=== PATIENT | male | born 1955 | race Two or more races ===

== ENCOUNTER 2016-05-27 09:55 | Observation (INO) | payer MEDICARE ==
--- NOTE | 2016-05-27 10:19 | PDOC ---
History of Present Illness - General History Source: Patient Exam Limitations: No Limitations <Marlon Jay - Last Filed: 05/27/16 12:49> - General History Source: Patient, Old Records Exam Limitations: No Limitations <Radha Cutler - Last Filed: 05/27/16 17:54> - General Chief Complaint: Chest Pain Stated Complaint: HIGH BP/ LT SIDE NUMBNESS Time Seen by Provider: 05/27/16 10:06 - History of Present Illness Initial Comments: 05/27/16 14:34 The patient is a 60 year old male, with a significant past medical history of anemia, hypertension, COPD, PE (2010) on Coumadin, CHF, gastritis, bowel obstruction and nephrolithiasis, who presents to the emergency department with intermittent chest pain for the past week. The patient reports that his chest pain is worse with exertion and feels similar but more severe than previous. The patient additionally reports a mild gradual onset of headache on the left side and endorses formication, stating that he feels a tingling sensation as if something is walking/crawling on his skin particularly on the left side of his face and shoulder. The patient denies diaphoresis, palpitations or shortness of breath. The patient denies fever, chills, nausea, vomiting, diarrhea or melena/ bpr. Pt states he is compliant with his coumadin. The patients primary language is Bahraini and history was taken in Bahraini. There is no associated weakness, numbness, vision changes, neck pain or back pain. Allergies: Amoxicillin Past Surgical History: Small Bowel Obstruction. Social History: Former smoker (quit 3 years ago). Denies alcohol or drug use. PCP: Dr. Lance Florentino Cnc Lathe Programmer: Dr. Harris (Radha Cutler) Past History - Past Medical History Anemia: Yes Cardiac Disorders: Yes COPD: Yes CHF: Yes DVT: Yes (blood clot) GI Disorders: Yes Disorders: Yes (Kidney Stones) HTN: Yes Hypercholesterolemia: Yes Kidney Stones: Yes Suicide Attempt (Hx): No - Surgical History Abdominal Surgery: Yes (SBO) Neurologic Surgery: No - Immunization History Immunization Up to Date: Yes - Psycho/Social/Smoking Cessation Hx Anxiety: No Suicidal Ideation: No Smoking Status: Yes Smoking History: Current some day smoker Have you smoked in the past 12 months: No Number of Cigarettes Smoked Daily: 2 If you are a former smoker, when did you quit?: 3 years Information on smoking cessation initiated: No 'Breaking Loose' booklet given: 12/29/15 Hx Alcohol Use: No Drug/Substance Use Hx: No Substance Use Type: None Hx Substance Use Treatment: No <PierreMarlon - Last Filed: 05/27/16 12:49> <Radha Cutler - Last Filed: 05/27/16 17:54> - Past Medical History Allergies/Adverse Reactions: Allergies Allergy/AdvReac Type Severity Reaction Status Date / Time amoxicillin [Amoxicillin] Allergy Verified 12/28/15 12:41 Home Medications: Ambulatory Orders Alprazolam 0.5 mg PO TID PRN 03/15/15 Losartan Potassium 25 mg PO DAILY 03/15/15 Warfarin Sodium [Coumadin] 4 mg PO HS 03/15/15 Loratadine/Pseudoephedrine Sul [Claritin-D 24 Hour Tablet] 1 tab PO DAILY #30 tab.sr.24h 03/16/15 Carisoprodol [Soma] 350 mg PO BID 12/28/15 Carvedilol [Coreg] 3.125 mg PO BID 12/28/15 Omeprazole 40 mg PO DAILY 12/28/15 Risperidone 0.5 mg PO HS 12/28/15 Review of Systems <PierreMarlon dan - Last Filed: 05/27/16 12:49> - Review of Systems Able to Perform ROS?: Yes <Radha Cutler - Last Filed: 05/27/16 17:54> - Review of Systems Comments:: 05/27/16 14:34 CONSTITUTIONAL: No reported: Fever, Chills, Diaphoresis, Generalized Weakness, Malaise, Loss of Appetite HEENT: No reported: Rhinorrhea, Nasal Congestion, Throat Pain, Throat Swelling, Difficulty Swallowing, Mouth Swelling, Ear Pain, Eye Pain, Visual Changes CARDIOVASCULAR:: +Chest Pain Reported No reported: Syncope, Palpitations, Irregular Heart Rate, Lightheadedness, Peripheral Edema RESPIRATORY: No reported: Cough, Shortness of Breath, SOB with Exertion, Orthopnea, Wheezing , Stridor, Hemoptysis GASTROINTESTINAL: No reported: Abdominal pain, Abdominal Distension, Nausea, Vomiting, Diarrhea, Constipation, Melena, Hematochezia GENITOURINARY: No reported: Dysuria, Frequency, Urgency, Hesitancy, Flank Pain, Genital Pain MUSCULOSKELETAL: No reported: Myalgia, Arthralgia, Joint Swelling, Back pain, Neck Pain SKIN: No reported: Rash, Itching, Pallor HEMATOLOGIC/IMMUNOLOGIC: No reported: Easy Bleeding, Easy Bruising, Lymphadenopathy, Frequent infections ENDOCRINE: No reported: Unexplained Weight Gain, Unexplained Weight Loss, Heat Intolerance , Cold Intolerance NEUROLOGIC: Reported: +Headache, Tingling Sensation No reported: Focal Weakness, Paresthesias, Vertigo, Lightheadedness, Unsteady Gait, Seizure, Mental Status Changes, Incontinence PSYCHIATRIC: No reported: Anxiety, Depression (Radha Cutler) *Physical Exam <Marlon Jay - Last Filed: 05/27/16 12:49> <Radha Cutler - Last Filed: 05/27/16 17:54> - Vital Signs Last Vital Signs Temp Pulse Resp BP Pulse Ox 98.2 F 60 26 H 105/49 98 05/27/16 12:38 05/27/16 12:38 05/27/16 09:58 05/27/16 12:38 05/27/16 12:38 - Physical Exam Comments: 05/27/16 14:35 GENERAL: The patient is awake, alert, and fully oriented, nontoxic - in no acute distress. HEAD: Normocephalic, atraumatic. EYES: Extraocular movements intact, sclera anicteric, conjunctiva clear. ENT: Normal voice, moist mucous membranes. NECK: Normal range of motion, supple. LUNGS: Breath sounds equal, clear to auscultation bilaterally. No wheezes, no rhonchi, no rales. HEART: Regular rate and rhythm, without murmur, rub or gallop. ABDOMEN: Soft, nontender, normoactive bowel sounds. No guarding, no rebound. No CVA tenderness EXTREMITIES: Normal range of motion, no edema. No clubbing or cyanosis. No cords , erythema, or tenderness. pulses i lower extremities symmetric PSYCH: Normal mood, normal affect. SKIN: Warm, dry, normal turgor. NEURO: Mental status: The patient is oriented x3. Cranial nerves: Cranial nerves II through XII are intact Motor: The upper extremities are 5 over 5 in all muscle groups. The lower extremities are 5 over 5 in all muscle groups. Negative pronator drift Sensation: Sensation is intact to light touch throughout. Cerebellar: Yawriu-dgodyi-ryyz is normal in both upper extremities. Gait: Normal. (Radha Cutler) Heart Score/ECG Review <Marlon Jay - Last Filed: 05/27/16 12:49> <Radha Cutler - Last Filed: 05/27/16 17:54> - ECG Impressions Comment:: 05/27/16 10:26 Twelve-lead EKG was performed and reviewed by me. There is normal sinus rhythm with a normal rate. rate of 65 The axis is normal. The intervals are normal. There is normal R wave progression There are no ST or T wave abnormalities. Impression: Normal twelve-lead EKG (Marlon Jay) ED Treatment Course - LABORATORY CBC & Chemistry Diagram: 05/27/16 10:07 05/27/16 10:07 <Marlon Jay - Last Filed: 05/27/16 12:49> - LABORATORY CBC & Chemistry Diagram: 05/27/16 10:07 05/27/16 10:07 <Radha Cutler - Last Filed: 05/27/16 17:54> - ADDITIONAL ORDERS Additional order review: Laboratory Results 05/27/16 05/27/16 05/27/16 10:07 10:07 10:07 INR 2.05 H Sodium 137 Potassium 4.0 Chloride 101 Carbon Dioxide 28 Anion Gap 8 BUN 10 D Creatinine 1.0 Creat Clearance w eGFR > 60 Random Glucose 112 H D Calcium 9.3 Total Bilirubin 0.5 AST 28 D ALT 31 D Alkaline Phosphatase 116 Creatine Kinase 44 Troponin I < 0.02 B-Natriuretic Peptide 75.76 Total Protein 7.5 Albumin 3.9 Blood Type O POSITIVE Antibody Screen Negative 05/27/16 10:07 RBC 6.08 H MCV 85.1 MCHC 33.5 RDW 15.1 MPV 8.3 Neutrophils % 58.0 Lymphocytes % 26.0 Monocytes % 6.0 Eosinophils % 2.0 Basophils % 3.0 H D - Medications Given in the ED: ED Medications Discontinued Medications Generic Name Dose Route Start Last Admin Trade Name Freq PRN Reason Stop Dose Admin Sodium Chloride 1,000 mls @ 1,000 mls/hr 05/27/16 11:06 05/27/16 11:25 Normal Saline - IV 05/27/16 12:05 1,000 mls/hr .Q1H ONE Administration Nitroglycerin 0.4 mg 05/27/16 12:25 05/27/16 12:35 Nitrostat - SL 05/27/16 12:26 0.4 mg ONCE ONE Administration Medical Decision Making <PierreMarlon - Last Filed: 05/27/16 12:49> <Radha Cutler - Last Filed: 05/27/16 17:54> - Medical Decision Making 05/27/16 10:21 60y M hx of copd, chf, PE on coumadin, htn, hl, presents with complaint of headache and chest pain. Pt states he has had chest pain for approx 1 week, intermittently, worsens with exertion, and headache that is associated with sensation of tingling like something is walking on his skin onhis face and shoulder since last night without associated weakness. Differential for the pts symptoms includes possible ACS, consider possible PE - however pt is on coumadin, so if pt is therapeutic, will defer further workup as pts sypmtoms are fairly vague. cnsider cva for pts tingling - will obtain CT head however the pts exam is unremarkable with intact neuro/cranial exam. vitals normal will obtain ct head, troponin, inr/pt, cxr, ekg will reasssess, anticipate observation A portion of this note was documented by scribe services under my direction. I have reviewed the details of the note, within reason, and agree with the documentation with the following case summary and management plan written by me 05/27/16 12:25 labs reviewed unremarkable trop negative ct head negative cxr negative pt now complaining of pain radiating to his left back - ?dissection? will r/o with CTA 05/27/16 12:[address] gomez agreed with management will place in observation telemetry status will notify dr. david ferrell for tele Case discussed in detail with admitting physician including history, physical exam and ancillary studies. Admitting physician has assumed care for the patient, will follow all pending diagnostics and will complete the evaluation and treatment. (Marlon Jay) 05/27/16 12:31 EXAM: RAD/CHEST X-RAY PORTABLE Reviewed By: Dr. Vince Rossi IMPRESSION: No active disease in the chest. EXAM: CT/HEAD CT WITHOUT CONTRAST Reviewed By: Dr. Luis Fernando Burch IMPRESSION: No evidence of acute intracranial hemorrhage, edema, midline shift, mass effect, or skull fracture. No CT evidence of acute territorial infarction. EXAM: CT/CHEST CTA; CT/ABDOMEN & PELVIS WITH CONTRAST Reviewed By: Dr. Miguel Garcia IMPRESSION: 1. There is no evidence of thoracic or abdominal aortic aneurysm or dissection. 2. Mild chronic lung disease and stable right upper lobe nodule. No acute pathology within in the chest. 3. No acute pathology within the abdomen or pelvis. Call placed to Dr. Gomez at 12:25, 12:45. Referred to answering service, awaiting callback. Dr. Gomez returned call at 12:46, case discussed. Call placed to Dr. Harris at 13:35, 14:00. Referred to answering service, awaiting callback. Dr. Guillaume returned call at 14:08, case discussed. (Radha Cutler) *DC/Admit/Observation/Transfer - Discharge Dispostion Admit: Yes <Marlon Jay - Last Filed: 05/27/16 12:49> <Radha Cutler - Last Filed: 05/27/16 17:54> Diagnosis at time of Disposition: Chest pain Qualifiers: Chest pain type: unspecified Qualified Code(s): R07.9 - Chest pain, unspecified - Discharge Dispostion Condition at time of disposition: Guarded - Attestations Scribe Attestion: 05/27/16 10:28 Documentation prepared by aRdha Cutler, acting as medical insurance biller for Marlon Jay MD. (Radha Cutler)
[2016-05-27 10:42] LABS: MCH 28.5 pg (25.7-33.7); MCHC 33.5 g/dl (32.0-35.9); MEAN CELL VOLUME 85.1 fl (80-96); MEAN PLT VOLUME 8.3 fl (7.5-11.1); PLATELET COUNT 387 K/MM3 (134-434); RDW 15.1 % (11.9-15.9); WHITE BLOOD COUNT 10.8 K/mm3 (4.0-10.0)
[2016-05-27 10:46] LABS: ALBUMIN 3.9 g/dl (3.4-5.0); ANION GAP 8 (8-16); CALCIUM 9.3 mg/dL (8.5-10.1); CO2 28 mmol/L (21-32); GLUCOSE,RANDOM 112 mg/dL (74-106); SGOT/AST 28 U/L (15-37); SGPT/ALT 31 U/L (12-78)
[2016-05-27 10:50] LABS: ALK PHOS 116 U/L (45-117); BILIRUBIN,TOTAL 0.5 mg/dL (0.2-1.0); TOT PROT 7.5 g/dl (6.4-8.2); TROPONIN I < 0.02 ng/ml (0.00-0.05)
[2016-05-27 10:51] LABS: INR 2.05 (0.82-1.09); PROTHROMBIN TIME (PATIENT) 22.9 SEC (9.98-11.88)
[2016-05-27] MEDS ORDERED: SODIUM CHLORIDE 1,000 ML IV ONE (11:06)
[2016-05-27] MEDS ORDERED: NITROGLYCERIN SUBLINGUAL 1/150 0.4 MG TAB SL ONE (12:25)
[2016-05-27 19:22] LABS: TROPONIN I < 0.02 ng/ml (0.00-0.05)
[2016-05-27] MEDS ORDERED: ACETAMINOPHEN 325 MG TABLET (FP) ONE (20:53)
[2016-05-27] MEDS ORDERED: ACETAMINOPHEN 325 MG TABLET (FP) PO PRN (20:59)
[2016-05-27] MEDS ORDERED: CYCLOBENZAPRINE HCL 10 MG TABLET (FP) PO PRN (23:50)
[2016-05-27] MEDS ORDERED: ALPRAZolam 0.25 MG TABLET PO PRN (23:50)
[2016-05-27] MEDS ORDERED: METOCLOPRAMIDE HCL 10 MG TABLET (FP) PO PRN (23:50)
[2016-05-28] MEDS: MAG HYDROX/AL HYDROX/SIMETH 30 ML UNIT-DOSE CUP PO PRN ×2 (00:10→09:10)
[2016-05-28] MEDS ORDERED: WARFARIN NA 2 MG TABLET (UD) PO ONE (00:15)
[2016-05-28 03:54] VITALS: BMI 30.6
[2016-05-28 06:57] LABS: BASOPHIL 2.5 % (0-2.0); EOSINOPHIL 5.1 % (0-4.5); MCH 28.6 pg (25.7-33.7); MCHC 33.6 g/dl (32.0-35.9); MEAN CELL VOLUME 85.1 fl (80-96); MEAN PLT VOLUME 8.4 fl (7.5-11.1); NEUTROPHILS 48.1 % (42.8-82.8); PLATELET COUNT 352 K/MM3 (134-434); WHITE BLOOD COUNT 8.2 K/mm3 (4.0-10.0)
[2016-05-28 07:06] LABS: ALBUMIN 3.4 g/dl (3.4-5.0); ANION GAP 9 (8-16); CALCIUM 8.6 mg/dL (8.5-10.1); CO2 30 mmol/L (21-32); GLUCOSE,RANDOM 80 mg/dL (74-106)
[2016-05-28 07:12] LABS: ALK PHOS 99 U/L (45-117); BILIRUBIN,TOTAL 0.4 mg/dL (0.2-1.0); CREATININE 1.2 mg/dL (0.7-1.3); SGOT/AST 22 U/L (15-37); SGPT/ALT 27 U/L (12-78); TOT PROT 6.5 g/dl (6.4-8.2); TROPONIN I < 0.02 ng/ml (0.00-0.05)
[2016-05-28 07:15] LABS: INR 1.92 (0.82-1.09); PROTHROMBIN TIME (PATIENT) 21.4 SEC (9.98-11.88)
[2016-05-28] MEDS ORDERED: PT OWN MED DRAWER 7, Y5N ONE (09:05)
--- NOTE | 2016-05-28 09:28 | PN ---
Progress Note (short form) - Note Progress Note: Consult Dictated Atypical chest pain, non-cardiac Remote h/o pulmonary embolism 2010 on coumadin REC: ECG without acute changes and serial enzymes neg Atypical symptoms, normal persantine MIBI 12/2015 Can repeat echo, rule out pericardial effusion (unlikely) No further cardiac w/u planned at this time. INR goal 2-3
[2016-05-28] MEDS ORDERED: CARVEDILOL 3.125 MG TABLET (FP) PO SCH (10:00)
[2016-05-28] MEDS ORDERED: PANTOPRAZOLE 40 MG TABLET (FP) PO SCH (10:00)
[2016-05-28] MEDS ORDERED: PATIENT'S OWN MEDICATION (NON-FORMULARY) (Carisoprodol [Soma] 350 MG) PO SCH (10:00)
[2016-05-28] MEDS ORDERED: LOSARTAN POTASSIUM 25 MG TABLET PO SCH (10:00)
--- NOTE | 2016-05-28 11:57 | HP ---
Admitting History and Physical - Past Medical History Cardiovascular: Yes: CAD (mild non-obstructive disease), CHF, HTN, Hyperlipdemia Pulmonary: Yes: Asthma, COPD, Pulmonary Embolus Gastrointestinal: Yes: Other (small bowel obstruction) Heme/Onc: Yes: Hypercoaguable State Infectious Disease: Yes: Other (left flank abscess) - Smoking History Smoking history: Current some day smoker Have you smoked in the past 12 months: Yes Aproximately how many cigarettes per day: 1 If you are a former smoker, when did you quit?: 3 years - Alcohol/Substance Use Hx Alcohol Use: No - Social History ADL: Independent History of Recent Travel: No Home Medications - Allergies Allergies/Adverse Reactions: Allergies Allergy/AdvReac Type Severity Reaction Status Date / Time amoxicillin [Amoxicillin] Allergy Verified 12/28/15 12:41 - Home Medications Home Medications: Ambulatory Orders Alprazolam 0.5 mg PO TID PRN 03/15/15 Losartan Potassium 25 mg PO DAILY 03/15/15 Warfarin Sodium [Coumadin] 4 mg PO HS 03/15/15 Carisoprodol [Soma] 350 mg PO BID 12/28/15 Carvedilol [Coreg] 3.125 mg PO BID 12/28/15 Omeprazole 40 mg PO DAILY 12/28/15 Cyclobenzaprine HCl [Flexeril 10 mg] 5 mg PO BID PRN 05/27/16 Loratadine/Pseudoephedrine Sul [Claritin-D 24 Hour Tablet] 1 tab PO DAILY PRN Mag Hydrox/Al Hydrox/Simeth [Mylanta Oral Suspension -] 30 ml PO Q6H PRN Metoclopramide HCl [Reglan] 5 mg PO TID PRN 05/27/16 Physical Examination Vital Signs: Vital Signs Temperature 97.4 F L 05/28/16 09:12 Pulse Rate 89 05/28/16 09:12 Respiratory Rate 20 05/28/16 09:12 Blood Pressure 122/82 05/28/16 09:12 O2 Sat by Pulse Oximetry (%) 96 05/27/16 23:59 Labs: CBC, BMP 05/28/16 05:35 05/28/16 05:35 Problem List - Problems (1) Chest pain Code(s): R07.9 - CHEST PAIN, UNSPECIFIED Qualifiers: Chest pain type: unspecified Qualified Code(s): R07.9 - Chest pain, unspecified (2) HLD (hyperlipidemia) Code(s): E78.5 - HYPERLIPIDEMIA, UNSPECIFIED (3) HTN (hypertension) Code(s): I10 - ESSENTIAL (PRIMARY) HYPERTENSION (4) History of pulmonary embolism Code(s): Z86.711 - PERSONAL HISTORY OF PULMONARY EMBOLISM
--- NOTE | 2016-05-28 12:10 | CONS ---
DATE OF CONSULTATION: 05/28/2016 REQUESTING PHYSICIAN: Joyce Topete MD CHIEF COMPLAINT: Chest pain. HISTORY OF PRESENT ILLNESS: This 60-year-old male with past medical history of anemia, hypertension, COPD, pulmonary embolism in 2010 on Coumadin, gastritis, small bowel obstruction, nephrolithiasis, presented to the emergency room for evaluation of multiple complaints including headache, neck pain, chest discomfort. He describes the pain as sharp, pulsating, lasting several seconds, and dissipating. No shortness of breath. No nausea, vomiting, or diaphoresis. He had a CT scan of the chest, negative for dissection in the emergency department. He also had similar symptoms in 2015, at which time, he had Persantine nuclear stress test in the fall of 2015, which was normal. He has chronic musculoskeletal chest complaints. Previous evaluation of the coronaries has been unremarkable. His EKG has no acute changes. REVIEW OF SYSTEMS: The patient feels generally fatigued and has been short of breath since admission. She states that her current shortness of breath is not significantly greater than when she came to the hospital. She has generalized diffuse abdominal discomfort. She denies chest pain. She is coughing intermittently with a nonproductive cough. She denies palpitations, PND, or orthopnea. She denies previous cardiac history - denies history of CA, CHF, or previous coronary interventions. PAST MEDICAL HISTORY: As above. ALLERGIES: He is allergic to AMOXICILLIN. ACTIVE MEDICATIONS: Include Tylenol 650 p.o. q.4 p.r.n., Xanax 0.5 t.i.d. p.r.n. for anxiety, carvedilol 3.125 b.i.d., Flexeril 50 p.o. b.i.d. p.r.n., losartan 25 mg daily, Reglan 5 t.i.d. p.r.n., Protonix 40 mg p.o. daily, and Coumadin 4 mg p.o. at bedtime. FAMILY HISTORY: Noncontributory. SOCIAL HISTORY: Nonsmoker. PHYSICAL EXAMINATION: Vital signs: Afebrile, temperature 97.4, pulse 89, blood pressure 122/82, oxygen saturation 96% on room air. Neck: No bruits. 2+ pulses. Heart: S1, 2, regular, no murmurs. Chest: Clear. Abdomen: Soft, nontender. Extremities: No edema. DIAGNOSTIC DATA: His 12-lead EKG showed normal sinus rhythm with no acute changes. Chest x-ray with no active disease. CT of chest performed on May 27, 2016, showed mild chronic lung disease and a stable right upper lobe nodule. No evidence of thoracic abdominal aortic dissection or aneurysm. LABORATORIES: White count today 8.2, hematocrit 48, platelets 352. INR 2.05. Sodium 142, potassium 4.1, creatinine 1.2. CK and troponin negative x3 sets. IMPRESSION: 1. Chronic anxiety. 2. Remote history of pulmonary embolism in 2010, on Coumadin. 3. Atypical chest pain, noncardiac. PLAN: Serial cardiac enzymes are negative x3 and EKG is normal. Can repeat echocardiogram to rule out pericardial effusion, though unlikely. No further cardiac workup is planned for this atypical chest pain syndrome, which is likely musculoskeletal and/or anxiety. If echocardiogram is fine, no objections to discharge home with close outpatient followup with PMD to regulate INR. Thank you for the consultation. CHIRAG GUADALUPE M.D. [id number]
[2016-05-28 14:27] VITALS: BP 111/67; PULSE 62; TEMP 97.7
--- NOTE | 2016-05-28 17:09 | EKG ---
Test Reason : Blood Pressure : / mmHG Vent. Rate : 065 BPM Atrial Rate : 065 BPM P-R Int : 164 ms QRS Dur : 078 ms QT Int : 376 ms P-R-T Axes : 032 -23 035 degrees QTc Int : 391 ms NORMAL SINUS RHYTHM NORMAL ECG WHEN COMPARED WITH ECG OF 29-DEC-2015 14:33, NO SIGNIFICANT CHANGE WAS FOUND Confirmed by BARBARA MANDUJANO MD ([id number]) on 05/28/2016 5:09:21 PM Referred By: Confirmed By:BARBARA MANDUJANO MD
[2016-05-28] MEDS ORDERED: WARFARIN NA 2 MG TABLET (UD) PO SCH (18:00)
== END 2016-05-28 16:50 | disposition home or self-care (01) ==
LOC: JER 09:55 → JERBED 12:50 → J4S 19:20
PROVIDERS: ADMIT Internal Medicine; ATTEND Internal Medicine
DX: R07.89 Other chest pain (principal); I25.10 Atherosclerotic heart disease of native coronary artery without angina pectoris; D64.9 Anemia, unspecified; J45.909 Unspecified asthma, uncomplicated; F17.210 Nicotine dependence, cigarettes, uncomplicated; K56.69 Other intestinal obstruction; D68.69 Other thrombophilia; J44.9 Chronic obstructive pulmonary disease, unspecified; E78.00 Pure hypercholesterolemia, unspecified; Z87.442 Personal history of urinary calculi; Z79.01 Long term (current) use of anticoagulants; Z86.711 Personal history of pulmonary embolism
CPT/HCPCS: 36415; 70450-TC; 71010-TC; 71275-TC; 74177-TC; 80053; 82550; 83880; 84484; 85025; 85610; 86850; 86900; 86901; 93005; 93010; 93306-TC; 99285-25; G0378

== ENCOUNTER 2016-10-28 10:11 | Emergency (ER) | payer MEDICARE, OTHER ==
[2016-10-28 10:16] VITALS: BMI 29.5
--- NOTE | 2016-10-28 10:34 | PDOC ---
Attending Attestation - Resident Resident Name: Elvis Freeman - ED Attending Attestation I have performed the following: I have examined & evaluated the patient, The case was reviewed & discussed with the resident, I agree w/resident's findings & plan, Exceptions are as noted - HPI HPI: 10/28/16 11:01 Plethora of problems this morning. On coumadin for PE - Physicial Exam PE: 10/28/16 11:04 Benign Physical Exam, Bilateral flank pain - Medical Decision Making 10/28/16 11:[address] Conti's physical exam and assessment/plan
--- NOTE | 2016-10-28 10:58 | EKG ---
Test Reason : Blood Pressure : / mmHG Vent. Rate : 070 BPM Atrial Rate : 070 BPM P-R Int : 158 ms QRS Dur : 078 ms QT Int : 384 ms P-R-T Axes : 034 -23 029 degrees QTc Int : 414 ms NORMAL SINUS RHYTHM POSSIBLE LEFT ATRIAL ENLARGEMENT BORDERLINE ECG WHEN COMPARED WITH ECG OF 27-MAY-2016 10:04, NO SIGNIFICANT CHANGE WAS FOUND Confirmed by BARBARA MANDUJANO MD ([id number]) on 10/28/2016 10:57:23 AM Referred By: Confirmed By:BARBARA MANDUJNAO MD
--- NOTE | 2016-10-28 11:12 | PDOC ---
History of Present Illness - General Chief Complaint: Pain, Acute Stated Complaint: SOB/chest pressure/abd pain Time Seen by Provider: 10/28/16 10:24 History Source: Patient Exam Limitations: No Limitations - History of Present Illness Initial Comments: 10/28/16 12:11 The patient is a 61M with a PMH of HTN, COPD, PE on coumadin, CHF, and gastritis who presents to the ED with RLQ pain. The patient states that he has had 2 days of RLQ pain which shifted to diffuse abdominal pain yesterday. He is also complaining of back pain abd b/l hip pain. His back pain started today. The pain in his abdomen radiates down to his testicles. He also states that every time he ejaculates, he feels pain. Surg: SBO surg All: amoxicillin Past History - Past Medical History Allergies/Adverse Reactions: Allergies Allergy/AdvReac Type Severity Reaction Status Date / Time amoxicillin [Amoxicillin] Allergy Verified 10/28/16 10:12 Home Medications: Ambulatory Orders Alprazolam 0.5 mg PO TID PRN 03/15/15 Losartan Potassium 25 mg PO DAILY 03/15/15 Warfarin Sodium [Coumadin] 4 mg PO HS 03/15/15 Carisoprodol [Soma] 350 mg PO BID 12/28/15 Carvedilol [Coreg] 3.125 mg PO BID 12/28/15 Omeprazole 40 mg PO DAILY 12/28/15 Cyclobenzaprine HCl [Flexeril 10 mg] 5 mg PO BID PRN 05/27/16 Loratadine/Pseudoephedrine Sul [Claritin-D 24 Hour Tablet] 1 tab PO DAILY PRN Mag Hydrox/Al Hydrox/Simeth [Mylanta Oral Suspension -] 30 ml PO Q6H PRN Metoclopramide HCl [Reglan] 5 mg PO TID PRN 05/27/16 Anemia: No Asthma: Yes Cancer: No Cardiac Disorders: No CVA: No COPD: Yes CHF: No DVT: Yes (blood clot) Dementia: No Diabetes: No GI Disorders: Yes (reflux, gerd, SBO, gastritis) Disorders: Yes (Kidney Stones) HTN: Yes Hypercholesterolemia: Yes Kidney Stones: Yes Liver Disease: No Suicide Attempt (Hx): No Seizures: No Other medical history: P.EMBOLISM - Surgical History Abdominal Surgery: Yes (SBO) Neurologic Surgery: No Orthopedic Surgery: Yes (right ankle surgery) - Immunization History Immunization Up to Date: Yes - Psycho/Social/Smoking Cessation Hx Anxiety: No Suicidal Ideation: No Smoking Status: Yes Smoking History: Current some day smoker Have you smoked in the past 12 months: Yes Number of Cigarettes Smoked Daily: 1 If you are a former smoker, when did you quit?: 3 years Information on smoking cessation initiated: Yes 'Breaking Loose' booklet given: 10/28/16 Hx Alcohol Use: No Drug/Substance Use Hx: No Substance Use Type: None Hx Substance Use Treatment: No Review of Systems - Review of Systems Able to Perform ROS?: Yes Is the patient limited Uzbek proficient: No Constitutional: No: Chills, Fever Respiratory: No: Shortness of Breath Cardiac (ROS): No: Chest Pain ABD/GI: Yes: Nausea, Vomiting, Other (abd pain) : Yes: Testicular Pain. No: Burning, Dysuria, Discharge *Physical Exam - Vital Signs Last Vital Signs Temp Pulse Resp BP Pulse Ox 98.0 F 77 18 147/86 97 10/28/16 10:12 10/28/16 10:12 10/28/16 10:12 10/28/16 10:12 10/28/16 10:12 - Physical Exam General Appearance: Yes: Nourished. No: Mild Distress HEENT: positive: Normal Voice, Hearing Grossly Normal Respiratory/Chest: positive: Lungs Clear, Normal Breath Sounds. negative: Chest Tender, Respiratory Distress, Labored Respiration, Rales, Rhonchi, Stridor , Wheezing Cardiovascular: positive: Regular Rhythm, Regular Rate, S1, S2. negative: Diastolic Murmur, Systolic Murmur Gastrointestinal/Abdominal: positive: Flat, Soft. negative: Tender, Pulsatile Mass, Protuberent, Distended, Guarding, Rebound, Tenderness Musculoskeletal: negative: CVA Tenderness, CVA Tenderness (R), CVA Tenderness (L ) Extremity: negative: Pelvis Stable, Coldness, Cyanosis, Swelling, Calf Tenderness Integumentary: positive: Dry, Warm. negative: Swelling Neurologic: positive: Alert Heart Score/ECG Review - ECG Impressions Normal ECG: Yes Comment:: 10/28/16 12:18 NSR. LA enlargement. Otherwise normal. ED Treatment Course - LABORATORY CBC & Chemistry Diagram: 10/28/16 11:20 08/21/17 11:20 Medical Decision Making - Medical Decision Making 10/28/16 12:18 The patient is a 61M witha PMH of HTN, COPD, PE on coumadin, CHF, and gastritis who presents with 2 days of abd pain, now with back pain that radiates to his testicles. I have ordered basic labs and UA. EKG is NSL. Will reassess when labs return. 10/28/16 18:38 CT shows prostatic enlargement but no acute pathology. Will give 1 dose of levaquin for suspected prostatitis. Patient states he is ready for d/c. *DC/Admit/Observation/Transfer Diagnosis at time of Disposition: Flank pain - Discharge Dispostion Disposition: HOME Condition at time of disposition: Stable Admit: No - Referrals Referrals: Driss Teresa MD [Staff Physician] - - Patient Instructions Additional Instructions: Please return to the ER if symptoms persist, worsen, or if new symptoms arise. Please follow up with the urologist within 7 days. Por favor regrese a la herbert de emergencias si los sntomas persisten, empeoran o si surgen nuevos sntomas. Por favor, siga con el urlogo dentro de 7 tai. - Attestations Physician Attestion: 10/28/16 18:43 I, Dr. Elvis Freeman, attest that this document has been prepared under my direction and personally reviewed by me in its entirety. I further attest, that it accurately reflects all work, treatment, procedures and medical decision -making performed by me.
[2016-10-28] MEDS ORDERED: SODIUM CHLORIDE 0.9% 1000 ML INFUS.BAG IV ONE (11:13)
[2016-10-28 11:53] LABS: ALBUMIN 3.8 g/dl (3.4-5.0); ANION GAP 6 (8-16); CALCIUM 9.2 mg/dL (8.5-10.1); CO2 30 mmol/L (21-32); GLUCOSE,RANDOM 112 mg/dL (74-106)
[2016-10-28 11:55] LABS: BASOPHIL 1.7 % (0-2.0); BILIRUBIN,TOTAL 0.6 mg/dL (0.2-1.0); CREATININE 1.1 mg/dL (0.7-1.3); MCH 27.5 pg (25.7-33.7); MCHC 33.2 g/dl (32.0-35.9); MEAN CELL VOLUME 82.8 fl (80-96); NEUTROPHILS 74.3 % (42.8-82.8); PLATELET COUNT 580 K/MM3 (134-434); RDW 14.6 % (11.9-15.9); SGOT/AST 24 U/L (15-37); TOT PROT 6.9 g/dl (6.4-8.2); WHITE BLOOD COUNT 14.2 K/mm3 (4.0-10.0)
[2016-10-28 12:04] LABS: ALK PHOS 97 U/L (45-117); SGPT/ALT 25 U/L (12-78)
[2016-10-28 12:10] LABS: URINE APPEARANCE CLEAR; URINE BILIRUBIN NEGATIVE (NEGATIVE); URINE BLOOD NEGATIVE (NEGATIVE); URINE COLOR COLORLESS; URINE GLUCOSE (UA) NEGATIVE (NEGATIVE); URINE KETONE NEGATIVE (NEGATIVE); URINE LEUK ESTERASE NEGATIVE (NEGATIVE); URINE NITRITE NEGATIVE (NEGATIVE); URINE PROTEIN NEGATIVE (NEGATIVE); URINE UROBILINOGEN NEGATIVE mg/dL (0.2-1.0)
[2016-10-28 12:34] LABS: INR 1.56 (0.82-1.09); PROTHROMBIN TIME (PATIENT) 17.3 SEC (9.98-11.88)
[2016-10-28] MEDS ORDERED: LEVOFLOXACIN 500 MG IVPB 100 ML IVPB ONE (17:48)
[2016-10-28] MEDS ORDERED: diphenhydrAMINE HCL 25 MG CAPSULE (FP) PO ONE ×2 (18:45→18:53)
[2016-10-28 19:03] VITALS: BP 129/85; PULSE 71; TEMP 98.1
== END 2016-10-28 19:01 | disposition home or self-care (01) ==
LOC: JER 10:11
DX: R10.31 Right lower quadrant pain (principal); I10 Essential (primary) hypertension; E78.00 Pure hypercholesterolemia, unspecified; J44.9 Chronic obstructive pulmonary disease, unspecified; J45.909 Unspecified asthma, uncomplicated; Z86.711 Personal history of pulmonary embolism; Z86.718 Personal history of other venous thrombosis and embolism; Z79.01 Long term (current) use of anticoagulants; Z87.19 Personal history of other diseases of the digestive system
CPT/HCPCS: 36415; 74176-TC; 80053; 81003; 85025; 85610; 93005; 93010; 96365; 99282-25; Q9967

== ENCOUNTER 2017-05-07 09:59 | Emergency (ER) | payer MEDICARE ==
[2017-05-07 10:28] VITALS: TEMP 97.5; BMI 29.9
--- NOTE | 2017-05-07 11:11 | PDOC ---
History of Present Illness - General History Source: Patient Exam Limitations: No Limitations - History of Present Illness Initial Comments: 05/07/17 11:16 The patient is a 61 year old male, with a significant past medical history of bladder cancer (resected 03/2017), leukemia, nephrolithiasis, hypertension, hyperlipidemia, anemia, asthma, COPD, CHF, PE (2010, on Coumadin), GERD, and SBO, who presents to the emergency department bilateral flank pain and upper abdominal pain for approximately 2 weeks. The patient reports his pain radiates into his testicles bilaterally. Patient reports his pain is intermittent and is exacerbated with urination. He denies any hematuria, frequency, or urgency. Patient reports visiting his PCP yesterday, where he had a UA done, which was positive for blood. He reports some nausea, but denies any vomiting, diarrhea, or constipation. He denies any fever, chills, headache, or dizziness. He denies any chest pain, shortness of breath, diaphoresis, or palpitations. He denies any recent travel or sick contacts. Allergies: Amoxicillin Past Surgical History: SBO Social History: Occasional Smoker. No ETOH or recreational drug use,. PCP: Dr. Lance Florentino Airline Station Agent: Dr. Harris <Mc Velasquez - Last Filed: 05/07/17 12:35> <Joyce Cespedes - Last Filed: 05/09/17 11:55> - General Chief Complaint: Pain, Acute Stated Complaint: PAIN/ BACK, PELVIC Time Seen by Provider: 05/07/17 10:38 Past History <Mc Velasquez - Last Filed: 05/07/17 12:35> - Past Medical History Anemia: No Asthma: Yes Cancer: No Cardiac Disorders: No CVA: No COPD: Yes CHF: No DVT: Yes (blood clot) Dementia: No Diabetes: No GI Disorders: Yes (reflux, gerd, SBO, gastritis) Disorders: Yes (Kidney Stones) HTN: Yes Hypercholesterolemia: Yes Kidney Stones: Yes Liver Disease: No Seizures: No - Surgical History Abdominal Surgery: Yes (SBO) Neurologic Surgery: No Orthopedic Surgery: Yes (right ankle surgery) - Immunization History Immunization Up to Date: Yes - Suicide/Smoking/Psychosocial Hx Smoking Status: Yes Smoking History: Current every day smoker Have you smoked in the past 12 months: Yes Number of Cigarettes Smoked Daily: 1 If you are a former smoker, when did you quit?: 3 years Information on smoking cessation initiated: No 'Breaking Loose' booklet given: 10/28/16 Hx Alcohol Use: No Drug/Substance Use Hx: No Substance Use Type: None Hx Substance Use Treatment: No <Joyce Cespedes - Last Filed: 05/09/17 11:55> - Past Medical History Allergies/Adverse Reactions: Allergies Allergy/AdvReac Type Severity Reaction Status Date / Time amoxicillin [Amoxicillin] Allergy Verified 05/07/17 10:23 Home Medications: Ambulatory Orders Alprazolam 0.5 mg PO TID PRN 03/15/15 Losartan Potassium 25 mg PO DAILY 03/15/15 Warfarin Sodium [Coumadin] 4 mg PO HS 03/15/15 Carisoprodol [Soma] 350 mg PO BID 12/28/15 Carvedilol [Coreg] 3.125 mg PO BID 12/28/15 Omeprazole 40 mg PO DAILY 12/28/15 Cyclobenzaprine HCl [Flexeril 10 mg] 5 mg PO BID PRN 05/27/16 Mag Hydrox/Al Hydrox/Simeth [Mylanta Oral Suspension -] 30 ml PO Q6H PRN Imatinib Mesylate 400 mg PO DAILY 05/07/17 Tamsulosin HCl [Flomax] 0.4 mg PO DAILY 05/07/17 Review of Systems - Review of Systems Able to Perform ROS?: Yes Comments:: 05/07/17 11:16 GENERAL/CONSTITUTIONAL: No fever or chills. No weakness. HEAD, EYES, EARS, NOSE AND THROAT: No change in vision. No ear pain or discharge. No sore throat. CARDIOVASCULAR: No chest pain or shortness of breath. RESPIRATORY: No cough, wheezing, or hemoptysis. GASTROINTESTINAL: Yes upper abdominal pain, nausea. No vomiting, diarrhea or constipation. GENITOURINARY: Yes testicular pain worse with urination, bilateral flank pain. No hematuria frequency, or change in urination. MUSCULOSKELETAL: No joint or muscle swelling or pain. No neck or back pain. SKIN: No rash NEUROLOGIC: No headache, vertigo, loss of consciousness, or change in strength/ sensation. ENDOCRINE: No increased thirst. No abnormal weight change. HEMATOLOGIC/LYMPHATIC: No anemia, easy bleeding, or history of blood clots. ALLERGIC/IMMUNOLOGIC: No hives or skin allergy. <Mc Velasquez - Last Filed: 05/07/17 12:35> *Physical Exam - Vital Signs Last Vital Signs Temp Pulse Resp BP Pulse Ox 97.5 F L 78 19 115/73 98 05/07/17 10:23 05/07/17 10:23 05/07/17 10:23 05/07/17 10:23 05/07/17 10:23 <Mc Velasquez - Last Filed: 05/07/17 12:35> - Vital Signs Last Vital Signs Temp Pulse Resp BP Pulse Ox 97.5 F L 78 19 115/73 98 05/07/17 10:23 05/07/17 10:23 05/07/17 10:23 05/07/17 10:23 05/07/17 10:23 <Joyce Cespedes - Last Filed: 05/09/17 11:55> ED Treatment Course - RADIOLOGY Radiograph Interpretation: 05/07/17 12:35 EXAM: CT Abdomen and Pelvis INTERPRETED BY: Dr. Ledesma REVIEWED BY: Dr. Cespedes IMPRESSION: No definite interval change is identified in comparison to a prior CT exam of 10/28/2016. There is no evidence of urolithiasis or hydronephrosis. Mild to moderate prostate enlargement. There is possible mild diffuse urinary bladder wall thickening which could be secondary to chronic outlet obstruction ( versus possible chronic/acute cystitis or being artifactual in nature due to somewhat limited distention). Colonic diverticulosis. Atherosclerotic vascular calcifications which are probably moderate in degree. <Mc Velasquez - Last Filed: 05/07/17 12:35> Medical Decision Making - Medical Decision Making Pt with testicular pain, slight posterior tenderness on exam, no induration, no redness. Sono wnl. UA wnl. Recommended outpatient urology f/u. <Joyce Cespedes - Last Filed: 05/09/17 11:55> *DC/Admit/Observation/Transfer - Attestations Scribe Attestion: 05/07/17 11:17 Documentation prepared by Mc Velasquez, acting as medical office receptionist assistant for Joyce Cespedes MD. <Mc Velasquez - Last Filed: 05/07/17 12:35> - Discharge Dispostion Admit: No <Joyce Cespedes - Last Filed: 05/09/17 11:55> Diagnosis at time of Disposition: Testicular pain, unspecified - Discharge Dispostion Disposition: HOME Condition at time of disposition: Stable - Referrals Referrals: Lance Florentino MD [Primary Care Provider] - - Patient Instructions Printed Discharge Instructions: DI for Testicular Pain
[2017-05-07 11:56] LABS: URINE APPEARANCE CLEAR; URINE BILIRUBIN NEGATIVE (NEGATIVE); URINE BLOOD 1+ (NEGATIVE); URINE COLOR COLORLESS; URINE GLUCOSE (UA) NEGATIVE (NEGATIVE); URINE KETONE NEGATIVE (NEGATIVE); URINE LEUK ESTERASE TRACE (NEGATIVE); URINE NITRITE NEGATIVE (NEGATIVE); URINE PROTEIN NEGATIVE (NEGATIVE); URINE UROBILINOGEN NEGATIVE mg/dL (0.2-1.0)
[2017-05-07 13:15] VITALS: BP 117/78; PULSE 64
== END 2017-05-07 13:15 | disposition home or self-care (01) ==
LOC: JER 09:59
DX: N50.819 Testicular pain, unspecified (principal); Z85.51 Personal history of malignant neoplasm of bladder; Z85.89 Personal history of malignant neoplasm of other organs and systems; C95.90 Leukemia, unspecified not having achieved remission; I10 Essential (primary) hypertension; E78.5 Hyperlipidemia, unspecified; J45.909 Unspecified asthma, uncomplicated; Z86.711 Personal history of pulmonary embolism; Z79.01 Long term (current) use of anticoagulants; K21.9 Gastro-esophageal reflux disease without esophagitis; I50.9 Heart failure, unspecified
CPT/HCPCS: 74176; 76870-TC; 81003; 81015; 87086; 99284-25

== ENCOUNTER 2018-04-24 20:09 | Inpatient (IN) | payer MEDICARE, OTHER ==
--- NOTE | 2018-04-24 20:19 | PDOC ---
Rapid Medical Evaluation Time Seen by Provider: 04/24/18 20:11 Medical Evaluation: Allergies Allergy/AdvReac Type Severity Reaction Status Date / Time amoxicillin [Amoxicillin] Allergy Verified 05/07/17 10:23 04/24/18 20:11 I performed a brief in-person evaluation of this patient. Chief complaint: BIBEMS with abdominal pain/flank pain, history of kidney stones Pertinent physical exam findings: Distress secondary to pain, right flank/RLQ tenderness I have ordered the following: CBC, CMP, UA/culture, Toradol The patient will proceed to the ED for further evaluation. Discharge Disposition - Diagnosis Kidney stone on right side - Referrals - Patient Instructions - Post Discharge Activity
[2018-04-24] MEDS ORDERED: KETOROLAC TROMETHAMINE 30 MG/1 ML VIAL IVPUSH ONE (20:20)
[2018-04-24] MEDS ORDERED: morphine CARPU-JECT 4 MG/1 ML DISP.SYRIN IVPUSH ONE (20:53)
[2018-04-24] MEDS ORDERED: ONDANSETRON 4 MG/2 ML VIAL IVPUSH ONE (20:53)
[2018-04-24 21:00] LABS: BASO % 0.5 % (0-2.0); EOS % 4.1 % (0-4.5); HEMOGLOBIN 15.1 GM/dL (11.7-16.9); MCH 33.3 pg (25.7-33.7); MCHC 35.9 g/dl (32.0-35.9); MEAN PLT VOLUME 8.8 fl (7.5-11.1); MONO % 9.9 % (3.8-10.2); NEUT % 54.5 % (42.8-82.8); PLATELET COUNT 219 K/MM3 (134-434); RBC 4.52 M/mm3 (4.00-5.60); RDW 13.9 % (11.9-15.9); WHITE BLOOD COUNT 8.9 K/mm3 (4.0-10.0)
[2018-04-24 21:03] LABS: URINE APPEARANCE CLEAR; URINE BILIRUBIN NEGATIVE (<2.0 mg/dL); URINE COLOR STRAW; URINE GLUCOSE (UA) NEGATIVE (NEGATIVE); URINE KETONE NEGATIVE (NEGATIVE); URINE LEUK ESTERASE NEGATIVE (NEGATIVE); URINE NITRITE NEGATIVE (NEGATIVE); URINE PROTEIN NEGATIVE (NEGATIVE); URINE UROBILINOGEN NEGATIVE mg/dL (0.2-1.0)
--- NOTE | 2018-04-24 21:12 | PDOC ---
Attending Attestation - HPI HPI: 04/24/18 21:17 The patient is a 62 year old male, with a significant past medical history of bladder cancer, leukemia, PE on Coumadin, kidneys stones, SBO, GERD, who presents to the emergency department with sudden onset of right flank pain beginning today. The patient states his pain feels different than his history of kidney stones. The patient reports 1 episode of vomiting (non bloody non bilious) this morning. The patient states he takes PO Imatinib daily for his leukemia. The patient denies chest pain, shortness of breath, headache and dizziness. Denies fever, chills, diarrhea and constipation. Denies dysuria, frequency, urgency and hematuria. Allergies: Amoxicillin Past Surgical History: SBO Social History: Occasional Smoker. No ETOH or recreational drug use,. PCP: Dr. Lance Florentino Documentation prepared by Alton Watts, acting as adjunct faculty for medical terminology for Jackie Padilla MD. - Physicial Exam PE: 04/24/18 21:25 GENERAL: Awake, alert, and fully oriented, in no acute distress HEAD: No signs of trauma EYES: PERRLA, EOMI, sclera anicteric, conjunctiva clear ENT: Auricles normal inspection, hearing grossly normal, nares patent, oropharynx clear without exudates. Moist mucosa NECK: Normal ROM, supple, no lymphadenopathy, JVD, or masses LUNGS: Breath sounds equal, clear to auscultation bilaterally. No wheezes, and no crackles HEART: Regular rate and rhythm, normal S1 and S2, no murmurs, rubs or gallops ABDOMEN: Soft, nontender, normoactive bowel sounds. No guarding, no rebound. No masses EXTREMITIES: Normal range of motion, no edema. No clubbing or cyanosis. No cords, erythema, or tenderness NEUROLOGICAL: Cranial nerves II through XII grossly intact. Normal speech, normal gait SKIN: Warm, Dry, normal turgor, no rashes or lesions noted. <Alton Watts - Last Filed: 04/24/18 21:25> - Resident Resident Name: Gaivno Pennington - ED Attending Attestation I have performed the following: I have examined & evaluated the patient, The case was reviewed & discussed with the resident, I agree w/resident's findings & plan - Medical Decision Making 04/24/18 21:25 Pt's exam is completely normal, except for the gassiness in the abd. No rebound and no guarding and no flank pain and no skin rashes, or spinal pain or muscle spasms. 04/24/18 22:03 Pt has no epig pain; his lipase is 400s. Pt states that he vomited this AM, however since that time, he was able to eat and keep food down. Pt has no right sided flank or side pain. The pain that brought him to the ER is now gone. He complains of some tightness in the anterior abdomen. He will be sent for a CT abd/pelvis to r/o colitis or other pathology. 04/25/18 01:08 Pt has a thickened appendix and he will be admitted for reeval and surgical consult in the AM <Jackie Padilla - Last Filed: 04/25/18 01:09>
[2018-04-24] MEDS ORDERED: SODIUM CHLORIDE 0.9% 500 ML INFUS.BAG IV ONE (21:14)
[2018-04-24] MEDS ORDERED: morphine SULFATE 4 MG/ML VIAL ONE (21:23)
[2018-04-24] MEDS ORDERED: ONDANSETRON 4 MG/2 ML VIAL ONE (21:24)
[2018-04-24] MEDS ORDERED: KETOROLAC TROMETHAMINE 30 MG/1 ML VIAL ONE (21:24)
[2018-04-24 21:26] LABS: ALBUMIN 3.7 g/dl (3.4-5.0); ALK PHOS 124 U/L (45-117); ANION GAP 4 MMOL/L (8-16); BILIRUBIN,TOTAL 0.3 mg/dL (0.2-1); BLOOD UREA NITROGEN 10 mg/dL (7-18); CALCIUM 8.1 mg/dL (8.5-10.1); CHLORIDE 104 mmol/L (98-107); CO2 29 mmol/L (21-32); CREATININE 1.2 mg/dL (0.55-1.3); GLUCOSE,RANDOM 77 mg/dL (74-106); LIPASE 411 U/L (73-393); SGOT/AST 28 U/L (15-37); SGPT/ALT 25 U/L (13-61); SODIUM 137 mmol/L (136-145)
--- NOTE | 2018-04-24 22:02 | PDOC ---
History of Present Illness - General Chief Complaint: Pain Stated Complaint: Pain Time Seen by Provider: 04/24/18 20:11 History Source: Patient, Family - History of Present Illness Initial Comments: 04/24/18 21:57 Patient is a 62M with history of bladder ca s/p resection, leukemia (currently taking imatinib), nephrolithiasis, HTN, PE (currently on coumadin), coming in today complaining of R flank pain that radiates to his abdomen. Patient states that this onset suddenly at 2pm today. Patient states that this hurts worse than his prior kidney stones. Endorses an episode of vomiting this morning. Denies fevers, chlls. Denies chest pain and shortness of breath. Denies dysuria , but states that he has had to push a little harder than normal to urinate. Denies diarrhea. Past History - Past Medical History Allergies/Adverse Reactions: Allergies Allergy/AdvReac Type Severity Reaction Status Date / Time amoxicillin [Amoxicillin] Allergy Verified 05/07/17 10:23 Home Medications: Ambulatory Orders Alprazolam 0.5 mg PO TID PRN 03/15/15 Losartan Potassium 25 mg PO DAILY 03/15/15 Warfarin Sodium [Coumadin] 4 mg PO HS 03/15/15 Carisoprodol [Soma] 350 mg PO BID 12/28/15 Carvedilol [Coreg] 3.125 mg PO BID 12/28/15 Omeprazole 40 mg PO DAILY 12/28/15 Cyclobenzaprine HCl [Flexeril 10 mg] 5 mg PO BID PRN 05/27/16 Mag Hydrox/Al Hydrox/Simeth [Mylanta Oral Suspension -] 30 ml PO Q6H PRN Imatinib Mesylate 400 mg PO DAILY 05/07/17 Tamsulosin HCl [Flomax] 0.4 mg PO DAILY 05/07/17 Anemia: No Asthma: Yes 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, bladder CA as per pt) Cardiac Disorders: No CVA: No COPD: Yes CHF: No DVT: Yes (blood clot) Dementia: No Diabetes: No GI Disorders: Yes (reflux, gerd, SBO, gastritis) Disorders: Yes (Kidney Stones) HTN: Yes Hypercholesterolemia: Yes Kidney Stones: Yes Liver Disease: No Seizures: No Other medical history: pulmonary embolic - Surgical History Abdominal Surgery: Yes (SBO) Neurologic Surgery: No Orthopedic Surgery: Yes (right ankle surgery) - Immunization History Immunization Up to Date: Yes - Suicide/Smoking/Psychosocial Hx Smoking Status: Yes Smoking History: Never smoked Have you smoked in the past 12 months: No Number of Cigarettes Smoked Daily: 1 If you are a former smoker, when did you quit?: 3 years Information on smoking cessation initiated: No 'Breaking Loose' booklet given: 10/28/16 Hx Alcohol Use: No Drug/Substance Use Hx: No Substance Use Type: None Hx Substance Use Treatment: No Review of Systems - Review of Systems Comments:: 04/24/18 22:01 GENERAL/CONSTITUTIONAL: No fever or chills. No weakness. HEAD, EYES, EARS, NOSE AND THROAT: No change in vision. No sore throat. CARDIOVASCULAR: No chest pain or shortness of breath RESPIRATORY: No cough, wheezing, or hemoptysis. GASTROINTESTINAL: +nausea, +vomiting, no diarrhea or constipation. GENITOURINARY: No dysuria, frequency, or change in urination. MUSCULOSKELETAL: No joint or muscle swelling or pain. No neck or back pain. SKIN: No rash NEUROLOGIC: No headache, vertigo, loss of consciousness, or change in strength/ sensation. ENDOCRINE: No increased thirst. No abnormal weight change HEMATOLOGIC/LYMPHATIC: No anemia, easy bleeding, or history of blood clots. ALLERGIC/IMMUNOLOGIC: No hives or skin allergy. *Physical Exam - Vital Signs Last Vital Signs Temp Pulse Resp BP Pulse Ox 97.9 F 78 20 122/74 100 04/24/18 20:19 04/24/18 20:19 04/24/18 20:19 04/24/18 20:19 04/24/18 20:19 - Physical Exam Comments: 04/24/18 22:02 GENERAL: Awake, alert, and fully oriented, in no acute distress HEAD: No signs of trauma, normocephalic, atraumatic EYES: PERRLA, EOMI, sclera anicteric, conjunctiva clear ENT: Auricles normal inspection, hearing grossly normal, nares patent, oropharynx clear without exudates. Moist mucosa NECK: Normal ROM, supple, no lymphadenopathy, JVD, or masses LUNGS: No distress, speaks full sentences, clear to auscultation bilaterally HEART: Regular rate and rhythm, normal S1 and S2, no murmurs, rubs or gallops, peripheral pulses normal and equal bilaterally. ABDOMEN: Soft, nontender, mild R sided CVA tenderness, normoactive bowel sounds. No guarding, no rebound. No masses EXTREMITIES: Normal inspection, Normal range of motion, no edema. No clubbing or cyanosis. NEUROLOGICAL: Cranial nerves II through XII grossly intact. Normal speech, no focal sensorimotor deficits SKIN: Warm, Dry, normal turgor, no rashes or lesions noted. Moderate Sedation - Procedure Monitoring Vital Signs: Procedure Monitoring Vital Signs Temperature 97.9 F 04/24/18 20: Pulse Rate 78 04/24/18 20:19 Respiratory Rate 20 04/24/18 20:19 Blood Pressure 122/74 04/24/18 20:19 O2 Sat by Pulse Oximetry (%) 100 04/24/18 20:19 ED Treatment Course - LABORATORY CBC & Chemistry Diagram: 04/24/18 20:31 04/24/18 20:25 - ADDITIONAL ORDERS Additional order review: Laboratory Results 04/24/18 04/24/18 20:31 20:25 Sodium 137 Potassium 4.0 Chloride 104 Carbon Dioxide 29 Anion Gap 4 L BUN 10 Creatinine 1.2 Creat Clearance w eGFR > 60 Random Glucose 77 Calcium 8.1 L Total Bilirubin 0.3 AST 28 ALT 25 Alkaline Phosphatase 124 H Total Protein 7.0 Albumin 3.7 Lipase 411 H Urine Color Straw Urine Appearance Clear Urine pH 6.0 Ur Specific [place] 1.005 L Urine Protein Negative Urine Glucose (UA) Negative Urine Ketones Negative Urine Blood Negative Urine Nitrite Negative Urine Bilirubin Negative Urine Urobilinogen Negative Ur Leukocyte Esterase Negative 04/24/18 20:31 RBC 4.52 MCV 93.0 MCHC 35.9 RDW 13.9 MPV 8.8 Neutrophils % 54.5 D Lymphocytes % 31.0 D Monocytes % 9.9 D Eosinophils % 4.1 Basophils % 0.5 - RADIOLOGY Radiology Studies Ordered: Category Date Time Status ABDOMEN & PELVIS CT WITH CONTR [CT] Stat CT Scan 04/24/18 20:59 Ordered - Medications Given in the ED: ED Medications Discontinued Medications Generic Name Dose Route Start Last Admin Trade Name Freq PRN Reason Stop Dose Admin Morphine Sulfate 4 mg 04/24/18 20:53 04/24/18 21:40 Morphine Injection - IVPUSH 04/24/18 20:54 4 mg ONCE ONE Administration Ondansetron HCl 4 mg 04/24/18 20:53 04/24/18 21:45 Zofran Injection IVPUSH 04/24/18 20:54 4 mg ONCE ONE Administration Sodium Chloride 500 ml 04/24/18 21:14 04/24/18 21:35 Normal Saline - IV 04/24/18 21:15 500 ml ONCE ONE Administration Medical Decision Making - Medical Decision Making 04/24/18 22:03 Patient is 62M with history of leukemia, pe (on coumadin), bladder CA, cbo, htn here today with abdominal pain. Vitals normal and stable. DDx includes, but is not limited to: pancreatitis, sbo, uti, nephrolithiasis. Abdominal labs sent, fluids, morphine and zofran given. Lipase mildly elevated, cbc normal. Will do CT scan for further evaluation. 04/25/18 00:27 CT shows enlargement of appendix without acute inflammatory changes. Patient states that his pain has improved, but the pain earlier was the worse in his life. Will observe. *DC/Admit/Observation/Transfer Diagnosis at time of Disposition: Abdominal pain - Discharge Dispostion Condition at time of disposition: Stable Decision to Admit order: Yes - Referrals Referrals: Lance Florentino MD [Primary Care Provider] - - Patient Instructions - Post Discharge Activity
[2018-04-25] MEDS ORDERED: MORPHINE SULFATE 2 MG/ML VIAL IVPUSH PRN (03:47)
[2018-04-25] MEDS ORDERED: ONDANSETRON 4 MG/2 ML VIAL IVPUSH PRN (03:47)
[2018-04-25] MEDS: DEXTROSE 5%-0.45% SALINE 1,000 ML IV SCH ×2 (03:50→12:38)
[2018-04-25] MEDS ORDERED: DEXTROSE 5%-0.45% SALINE 1,000 ML IV SCH (04:00)
[2018-04-25] MEDS ORDERED: MORPHINE SULFATE 2 MG/ML VIAL ONE (04:34)
[2018-04-25 05:41] LABS: BASO % 0.4 % (0-2.0); EOS % 5.2 % (0-4.5); HEMATOCRIT 41.6 % (35.4-49); HEMOGLOBIN 14.5 GM/dL (11.7-16.9); LYMPH % 34.1 % (8-40); MCH 32.3 pg (25.7-33.7); MCHC 34.8 g/dl (32.0-35.9); MEAN CELL VOLUME 92.7 fl (80-96); MEAN PLT VOLUME 8.2 fl (7.5-11.1); MONO % 10.7 % (3.8-10.2); NEUT % 49.6 % (42.8-82.8); PLATELET COUNT 188 K/MM3 (134-434); RBC 4.48 M/mm3 (4.00-5.60); RDW 13.8 % (11.9-15.9); WHITE BLOOD COUNT 6.7 K/mm3 (4.0-10.0)
[2018-04-25 06:13] LABS: ALBUMIN 3.5 g/dl (3.4-5.0); ALK PHOS 106 U/L (45-117); ANION GAP 4 MMOL/L (8-16); BILIRUBIN,TOTAL 0.5 mg/dL (0.2-1); BLOOD UREA NITROGEN 10 mg/dL (7-18); CALCIUM 7.9 mg/dL (8.5-10.1); CHLORIDE 106 mmol/L (98-107); CO2 28 mmol/L (21-32); CREATININE 1.1 mg/dL (0.55-1.3); GLUCOSE,RANDOM 80 mg/dL (74-106); POTASSIUM 4.5 mmol/L (3.5-5.1); SGOT/AST 25 U/L (15-37); SGPT/ALT 23 U/L (13-61); SODIUM 139 mmol/L (136-145); TOT PROT 6.4 g/dl (6.4-8.2)
[2018-04-25] MEDS: CARVEDILOL 3.125 MG TABLET (FP) PO SCH ×2 (09:49→23:01)
[2018-04-25] MEDS: LOSARTAN POTASSIUM 25 MG TABLET PO SCH (09:49)
[2018-04-25] MEDS: TAMSULOSIN HCL 0.4 MG CAP PO SCH (09:49)
[2018-04-25] MEDS: HEPARIN NA (PORCINE) 5,000 UNITS/ML 1ML VIAL SQ SCH ×2 (09:56→23:01)
[2018-04-25] MEDS ORDERED: IMATINIB MESYLATE 400 MG PO ONE (10:00)
[2018-04-25] MEDS ORDERED: PANTOPRAZOLE 40 MG TABLET (FP) PO SCH (10:00)
[2018-04-25] MEDS: ALPRAZolam 0.25 MG TABLET PO PRN (12:23)
[2018-04-25 12:56] LABS: INR 1.18 (0.83-1.09); PROTHROMBIN TIME (PATIENT) 13.9 SEC (9.7-13.0)
--- NOTE | 2018-04-25 12:56 | EKG ---
Test Reason : Blood Pressure : / mmHG Vent. Rate : 051 BPM Atrial Rate : 051 BPM P-R Int : 164 ms QRS Dur : 080 ms QT Int : 454 ms P-R-T Axes : 039 -13 011 degrees QTc Int : 418 ms SINUS BRADYCARDIA WHEN COMPARED WITH ECG OF 28-OCT-2016 10:22, NO SIGNIFICANT CHANGE WAS FOUND Confirmed by CHIRAG GUADALUPE MD ([id number]) on 04/25/2018 12:55:48 PM Referred By: Confirmed By:CHIRAG GUADALUPE MD
[2018-04-25] MEDS ORDERED: PT OWN MED DRAWER 7, Y5N ONE (14:05)
[2018-04-25] MEDS: PREVACID 30 MG PO SCH (14:09)
[2018-04-25 15:06] VITALS: BMI 30.2
--- NOTE | 2018-04-25 17:43 | HP ---
Admitting History and Physical - Admission History of Present Illness: The patient is a 62 year old male, with a significant past medical history of bladder cancer, leukemia, PE on Coumadin, kidneys stones, SBO, GERD, who presents to the emergency department with sudden onset of right flank pain beginning today. The patient states his pain feels different than his history of kidney stones. The patient reports 1 episode of vomiting (non bloody non bilious) this morning. The patient states he takes PO Imatinib daily for his leukemia. - Past Medical History Cardiovascular: Yes: CAD (mild non-obstructive disease), CHF, HTN, Hyperlipdemia Pulmonary: Yes: Asthma, COPD, Pulmonary Embolus Gastrointestinal: Yes: Other (small bowel obstruction) Heme/Onc: Yes: Hypercoaguable State Infectious Disease: Yes: Other (left flank abscess) - Past Surgical History Additional Past Surgical History: Exploratory laparotomy - Smoking History Smoking history: Current every day smoker Have you smoked in the past 12 months: No Aproximately how many cigarettes per day: 2 If you are a former smoker, when did you quit?: 3 years - Alcohol/Substance Use Hx Alcohol Use: Yes - Social History ADL: Independent History of Recent Travel: No Home Medications - Allergies Allergies/Adverse Reactions: Allergies Allergy/AdvReac Type Severity Reaction Status Date / Time amoxicillin [Amoxicillin] Allergy Verified 05/07/17 10:23 - Home Medications Home Medications: Ambulatory Orders Alfuzosin HCl [Uroxatral] 10 mg PO DAILY 04/25/18 Alprazolam 0.5 mg PO BID 04/25/18 Calcium Carb/Magnesium Hydrox [Antacid Chewable Tablet] 1 each PO PRN PRN Carisoprodol [Soma] 350 mg PO BID 04/25/18 Carvedilol [Coreg -] 3.125 mg PO BID 04/25/18 Clindamycin [Cleocin -] 300 mg PO TID 04/25/18 Imatinib Mesylate 400 mg PO DAILY 04/25/18 Losartan Potassium [Cozaar -] 25 mg PO DAILY 04/25/18 Tamsulosin HCl [Flomax] 0.4 mg PO DAILY 04/25/18 Warfarin Na [Coumadin -] 5 mg PO DAILY 04/25/18 Carvedilol [Coreg -] 3.125 mg PO BID tablet 04/26/18 Losartan Potassium [Cozaar -] 25 mg PO DAILY tablet 04/26/18 Pantoprazole Sodium [Protonix -] 40 mg PO DAILY tablet.ec 04/26/18 Tamsulosin HCl [Flomax -] 0.4 mg PO DAILY@0830 cap.er.24h 04/26/18 Warfarin Na [Coumadin -] 4 mg PO DAILY@1800 tablet 04/26/18 Family Disease History - Family Disease History Family History: Unremarkable Review of Systems - Review of Systems Constitutional: reports: No Symptoms Eyes: reports: No Symptoms HENT: reports: No Symptoms Neck: reports: No Symptoms Cardiovascular: reports: No Symptoms Respiratory: reports: No Symptoms Gastrointestinal: reports: Abdominal Pain Genitourinary: reports: No Symptoms Physical Examination Vital Signs: Vital Signs Temperature 97.5 F L 04/25/18 14:17 Pulse Rate 58 L 04/25/18 14:17 Respiratory Rate 20 04/25/18 14:17 Blood Pressure 116/70 04/25/18 14:17 O2 Sat by Pulse Oximetry (%) 96 04/25/18 08:30 Constitutional: Yes: Well Nourished HENT: Yes: WNL Neck: Yes: WNL, Supple Cardiovascular: Yes: WNL, Regular Rate and Rhythm Respiratory: Yes: WNL, Regular, CTA Bilaterally Gastrointestinal: Yes: WNL, Normal Bowel Sounds, Soft Musculoskeletal: Yes: WNL Extremities: Yes: WNL Edema: No Neurological: Yes: WNL, Alert, Oriented ...Motor Strength: WNL Labs: CBC, BMP 04/25/18 05:27 04/25/18 05:27 Problem List - Problems (1) Abdominal pain Assessment/Plan: CT scan abd/pelvis showed enlarged appendiix Will get surgical consult Pt is intractable Cont pain meds Cont IVF Code(s): R10.9 - UNSPECIFIED ABDOMINAL PAIN Qualifiers: Abdominal location: lower abdomen, unspecified Qualified Code(s): R10.30 - Lower abdominal pain, unspecified (2) Bladder cancer Assessment/Plan: As per his oncologist Code(s): C67.9 - MALIGNANT NEOPLASM OF BLADDER, UNSPECIFIED (3) HLD (hyperlipidemia) Code(s): E78.5 - HYPERLIPIDEMIA, UNSPECIFIED (4) HTN (hypertension) Code(s): I10 - ESSENTIAL (PRIMARY) HYPERTENSION (5) History of pulmonary embolism Assessment/Plan: Pt is refusing coumdain bc he states he is having dental extractions on and therefore was told not to take his coumadin Code(s): Z86.711 - PERSONAL HISTORY OF PULMONARY EMBOLISM
[2018-04-25] MEDS ORDERED: WARFARIN NA 2 MG TABLET (UD) PO SCH (18:00)
[2018-04-25] MEDS ORDERED: IMATINIB MESYLATE 400 MG PO SCH (18:00)
--- NOTE | 2018-04-25 18:19 | CONSULT ---
Consult Consult Specialty:: Surgery - History of Present Illness Chief Complaint: right flank and abdominal pain History of Present Illness: The patient is a 62 year old male, with a significant past medical history of bladder cancer, leukemia, PE on Coumadin, kidneys stones, SBO, GERD, who presents to the emergency department with sudden onset of right flank pain on the day of admission. The patient states his pain feels different than his history of kidney stones. The patient reports 1 episode of vomiting (non bloody non bilious) this morning. The patient states he takes PO Imatinib daily for his leukemia. The patient denies chest pain, shortness of breath, headache and dizziness. Denies fever, chills, diarrhea and constipation. Denies dysuria, frequency, urgency and hematuria. CT A/P showed possible early appendicitis Currently has no RLQ pain and is tolerating full liquid diet - History Source History Provided By: Patient - Past Medical History Cardio/Vascular: Yes: CAD (mild non-obstructive disease), CHF, HTN, Hyperlipdemia Pulmonary: Yes: Asthma, COPD, Pulmonary Embolus Gastrointestinal: Yes: Other (small bowel obstruction) Infectious Disease: Yes: Other (left flank abscess) - Alcohol/Substance Use Hx Alcohol Use: Yes - Smoking History Smoking history: Current every day smoker Have you smoked in the past 12 months: No Aproximately how many cigarettes per day: 2 If you are a former smoker, when did you quit?: 3 years - Social History Usual Living Arrangement: Alone ADL: Independent History of Recent Travel: No Home Medications - Allergies Allergies/Adverse Reactions: Allergies Allergy/AdvReac Type Severity Reaction Status Date / Time amoxicillin [Amoxicillin] Allergy Verified 05/07/17 10:23 - Home Medications Home Medications: Ambulatory Orders Alfuzosin HCl [Uroxatral] 10 mg PO DAILY 04/25/18 Alprazolam 0.5 mg PO BID 04/25/18 Calcium Carb/Magnesium Hydrox [Antacid Chewable Tablet] 1 each PO PRN PRN Carisoprodol [Soma] 350 mg PO BID 04/25/18 Carvedilol [Coreg -] 3.125 mg PO BID 04/25/18 Clindamycin [Cleocin -] 300 mg PO TID 04/25/18 Imatinib Mesylate 400 mg PO DAILY 04/25/18 Lansoprazole [Prevacid] 30 mg PO DAILY 04/25/18 Losartan Potassium [Cozaar -] 25 mg PO DAILY 04/25/18 Tamsulosin HCl [Flomax] 0.4 mg PO DAILY 04/25/18 Warfarin Na [Coumadin] 5 mg PO DAILY 04/25/18 Review of Systems - Review of Systems Eyes: reports: No Symptoms HENT: reports: No Symptoms Neck: reports: No Symptoms Cardiovascular: reports: No Symptoms Respiratory: reports: No Symptoms Gastrointestinal: reports: Other (referred pain from the right CVA) Genitourinary: reports: Flank Pain Physical Exam Vital Signs: Vital Signs Temperature 97.5 F L 04/25/18 14:17 Pulse Rate 58 L 04/25/18 14:17 Respiratory Rate 20 04/25/18 14:17 Blood Pressure 116/70 04/25/18 14:17 O2 Sat by Pulse Oximetry (%) 96 04/25/18 08:30 Constitutional: Yes: No Distress Eyes: Yes: Conjunctiva Clear HENT: Yes: Normocephalic Neck: Yes: Supple Cardiovascular: Yes: Regular Rate and Rhythm Respiratory: Yes: CTA Bilaterally Gastrointestinal: Yes: Soft, Tenderness, Epigastrium, Other (No RLQ tenderness at this time) Labs: CBC, BMP 04/25/18 05:27 04/25/18 05:27 Imaging - Results Cat Scan: Report Reviewed, Image Reviewed Problem List - Problems (1) Abdominal pain Assessment/Plan: Unlikely acute appendicitis Continue current diet and medications Will repeat CT abdomen and pelvis with contrast if pain recurs No surgical intervetion necessary at this time Code(s): R10.9 - UNSPECIFIED ABDOMINAL PAIN Qualifiers: Abdominal location: lower abdomen, unspecified Qualified Code(s): R10.30 - Lower abdominal pain, unspecified
[2018-04-26] MEDS: CARVEDILOL 3.125 MG TABLET (FP) PO SCH (09:10)
[2018-04-26] MEDS: TAMSULOSIN HCL 0.4 MG CAP PO SCH (09:10)
[2018-04-26] MEDS: LOSARTAN POTASSIUM 25 MG TABLET PO SCH (09:10)
[2018-04-26] MEDS: HEPARIN NA (PORCINE) 5,000 UNITS/ML 1ML VIAL SQ SCH (09:13)
[2018-04-26] MEDS: ALPRAZolam 0.25 MG TABLET PO PRN (09:15)
[2018-04-26] MEDS: PREVACID 30 MG PO SCH (09:18)
[2018-04-26 09:30] LABS: INR 1.12 (0.83-1.09); PROTHROMBIN TIME (PATIENT) 13.2 SEC (9.7-13.0)
[2018-04-26 14:16] VITALS: BP 119/69; PULSE 67; TEMP 98
== END 2018-04-26 17:39 | disposition home or self-care (01) | DRG 392 ==
LOC: JER 20:09 → JERBED 04-25 00:28 → OBSVTOIN 04-25 03:44 → J5S 04-25 06:10
PROVIDERS: ADMIT Internal Medicine; ATTEND Internal Medicine
DX: R10.30 Lower abdominal pain, unspecified (principal); C95.90 Leukemia, unspecified not having achieved remission; D68.59 Other primary thrombophilia; J45.909 Unspecified asthma, uncomplicated; K21.9 Gastro-esophageal reflux disease without esophagitis; E78.00 Pure hypercholesterolemia, unspecified; E78.5 Hyperlipidemia, unspecified; I25.10 Atherosclerotic heart disease of native coronary artery without angina pectoris; J44.9 Chronic obstructive pulmonary disease, unspecified; I11.0 Hypertensive heart disease with heart failure; F17.210 Nicotine dependence, cigarettes, uncomplicated; Z86.711 Personal history of pulmonary embolism; Z85.51 Personal history of malignant neoplasm of bladder; Z79.01 Long term (current) use of anticoagulants; Z87.442 Personal history of urinary calculi
CPT/HCPCS: 36415; 70450-TC; 74177-TC; 80053; 81003; 82550; 83690; 84484; 85025; 85610; 87086; 93005; 93010; 99285-25; G0378; J1644

== ENCOUNTER 2019-11-06 18:38 | Inpatient (IN) | payer OTHER ==
[2019-11-06] MEDS ORDERED: ACETAMINOPHEN 1000 MG/100 ML VIAL (NON FORMULARY) IVPB ONE (20:07)
[2019-11-06] MEDS ORDERED: ASPIRIN 81 MG CHEWABLE TABLETS PO ONE (20:07)
--- NOTE | 2019-11-06 20:14 | PDOC ---
History of Present Illness - General Chief Complaint: Chest Pain Stated Complaint: CHEST PAIN/RADIATING TO L/ARM/R/LEG/PAIN Time Seen by Provider: 11/06/19 19:28 - History of Present Illness Initial Comments: 11/06/19 20:08 64 y/o M hx of bladder Ca, leukemia (on imatinib), HTN, P.e's (on warfarin) presents to the ED with chest pain/pressure which began 4 days ago. Pt reporst he was at home when the pain began. Pain radiates to his neck and back and has been intermittent for the last 4 days. occurs at rest and with exertion. Pt reports feeling nauseous yesterday which was relived with otc medications. He reports getting short of breath during this episodes of pain. Pain is 8/10 in severity at this time. he denies: fevers, chills, recent surgery, endorses: headache,leg pain PMHx: as noted above ROS: as noted SHx: Denies Etoh, IVDA, tobacco use Allergies: NKDA ROS: GENERAL/CONSTITUTIONAL: No fever or chills. No weakness. HEAD, EYES, EARS, NOSE AND THROAT: No change in vision. No ear pain or discharge. No sore throat. CARDIOVASCULAR: No chest pain or shortness of breath RESPIRATORY: No cough, wheezing, or hemoptysis. GASTROINTESTINAL: No nausea, vomiting, diarrhea or constipation. GENITOURINARY: No dysuria, frequency, or change in urination. MUSCULOSKELETAL: No joint or muscle swelling or pain. No neck or back pain. SKIN: No rash NEUROLOGIC: No headache, vertigo, loss of consciousness, or change in str ength/sensation. ENDOCRINE: No increased thirst. No abnormal weight change HEMATOLOGIC/LYMPHATIC: No anemia, easy bleeding, or history of blood clots. ALLERGIC/IMMUNOLOGIC: No hives or skin allergy. PE: GENERAL: Awake, alert, and fully oriented, in no acute distress HEAD: No signs of trauma, normocephalic, atraumatic EYES: PERRLA, EOMI, sclera anicteric, conjunctiva clear ENT: Auricles normal inspection, hearing grossly normal, nares patent, oropharynx clear without exudates. Moist mucosa NECK: Normal ROM, supple, no lymphadenopathy, JVD, or masses LUNGS: No distress, speaks full sentences, crackles in lower right lung base. HEART: Regular rate and rhythm, normal S1 and S2, no murmurs, rubs or gallops, peripheral pulses normal and equal bilaterally. ABDOMEN: Soft, nontender, normoactive bowel sounds. No guarding, no rebound. No masses EXTREMITIES : Normal inspection, Normal range of motion, no edema. No clubbing or cyanosis NEUROLOGICAL: Cranial nerves II through XII grossly intact. Normal speech, normal gait, no focal sensorimotor deficits SKIN: Warm, Dry, normal turgor, no rashes or lesions noted 11/06/19 20:38 Past History - Medical History Allergies/Adverse Reactions: Allergies Allergy/AdvReac Type Severity Reaction Status Date / Time amoxicillin Allergy Verified 11/06/19 18:45 Home Medications: Ambulatory Orders Azithromycin [Zithromax 250mg Tablets -] 250 mg PO UTDICT #6 tab 02/02/18 Benzonatate [Tessalon Pearls -] 100 mg PO TID PRN #21 capsule 02/02/18 Ipratropium [place] 2 spray NS BID PRN #1 spray 02/02/18 Ketotifen Fumarate [Zaditor] 2 drop OP BID PRN #1 bottle 02/02/18 Methylprednisolone [Medrol Dose Yasir] 4 mg PO ASDIR #21 tablet 02/02/18 Acid Gone Tablet Chew 11/06/19 Alprazolam 30 mg PO DAILY 11/06/19 Carisoprodol 350 mg PO BID 11/06/19 Carvedilol 3.125 mg PO BID 11/06/19 Imatinib Mesylate 400 mg PO DAILY 11/06/19 Lansoprazole 30 mg PO BID 11/06/19 Warfarin Sodium 5 mg PO DAILY 11/06/19 Cancer: Yes (leukemia, BLADDER) COPD: No Other medical history: PE - Surgical History Abdominal Surgery: (TESTICLE) - Immunization History Immunization Up to Date: Yes - Psycho-Social/Smoking History Smoking History: Current every day smoker Number of Cigarettes Smoked Daily: 2 Information on smoking cessation initiated: Yes - Substance Abuse Hx (Audit-C & DAST Scrn) How often the patient has a drink containing alcohol: Never Score: In Men: 4 or > Positive; In Women: 3 or > Positive: 0 Screen Result (Pos requires Nsg. Audit-10AR): Negative In the last yr the pt used illegal drug/Rx for NonMed reason: No Score: Yes response is considered Positive: 0 Screen Result (Positive result requires Nsg. DAST-10): Negative *Physical Exam - Vital Signs Last Vital Signs Temp Pulse Resp BP Pulse Ox 97.5 F L 73 19 138/85 96 11/06/19 18:42 11/06/19 18:42 11/06/19 18:42 11/06/19 18:42 11/06/19 18:42 ED Treatment Course - LABORATORY CBC & Chemistry Diagram: 11/06/19 20:30 11/06/19 20:30 - RADIOLOGY Radiology Studies Ordered: Category Date Time Status CHEST X-RAY PORTABLE* [RAD] Stat Radiology 11/06/19 19:31 Taken Medical Decision Making - Medical Decision Making 11/06/19 20:12 MDM 64 y/o M hx of bladder Ca, leukemia (on imatinib), HTN, P.e's (on warfarin) presents to the ED with chest pain/pressure which began 4 days ago. DDx including but not limited to: ACS, p.e, pneumonia, Workup: labs, cxr, ekg, TX: 324 chewable aspirin, tylenol (headache) Scores - HEART score - 4 - Wells criteria 2.5 (moderate risk group) EKG: normal sinus rhythm, HR 68 bpm, [place] 168ms, QRS 78 ms, QTc 427 ms ED course labs, CXR, meds: 324 chewable aspirin, Re-assessment: Pt feeling better Disposition: admitted to dr. gomez wants warfarin 7.5mgPO since patient subtherapeutic. CTA No evidence of a pulmonary embolism, thoracic aortic aneurysm, or dissection Bovine aortic arch Patchy bilateral groundglass infiltrates with peripheral lung zone predominance that is suggestive of an atypical pneumonic process. Clinical correlation is advised as COVID-19 infection can have this imaging presentation. Biapical bullous changes 0.3 cm pleural-based nodule within the periphery of the right upper lobe. According to the Fleischner criteria, it the patient is low risk, no further imaging is required. However, if the patient is in a high-risk category, an optional follow-up CT at 12 months can be performed 1.9 cm cystic lesion within the subcutaneous tissues of the left upper posterior chest wall immediately below the skin surface Anterior bridging osteophytes within the thoracic spine at multiple levels that is suggestive of diffuse idiopathic skeletal hyperostosis Old healed fracture of the anterior aspect of the right sixth rib Discharge - Follow up/Referral - Patient Discharge Instructions - Post Discharge Activity
[2019-11-06] MEDS ORDERED: ASPIRIN 81 MG CHEWABLE TABLETS ONE (20:22)
[2019-11-06] MEDS ORDERED: ACETAMINOPHEN INJECTION 100 ML IVPB ONE (20:22)
[2019-11-06 20:48] LABS: EOS % 3.7 % (0-4.5); HEMATOCRIT 43.1 % (35.4-49); HEMOGLOBIN 14.9 GM/dL (11.7-16.9); LYMPH % 34.4 % (8-40); MCH 33.1 pg (25.7-33.7); MCHC 34.5 g/dl (32.0-35.9); MEAN PLT VOLUME 8.8 fl (7.5-11.1); MONO % 8.7 % (3.8-10.2); NEUT % 52.2 % (42.8-82.8); PLATELET COUNT 204 K/MM3 (134-434); RBC 4.49 M/mm3 (4.00-5.60); RDW 13.3 % (11.9-15.9); WHITE BLOOD COUNT 7.4 K/mm3 (4.0-10.0)
[2019-11-06 20:55] LABS: INR 1.81 (0.83-1.09); PROTHROMBIN TIME (PATIENT) 21.5 SEC (9.7-13.0)
[2019-11-06 20:57] LABS: ACTIVATED PTT 39.3 SECONDS (25.2-36.5)
[2019-11-06 21:21] LABS: ALBUMIN 3.9 g/dl (3.4-5.0); ALK PHOS 113 U/L (45-117); ANION GAP 10 MMOL/L (8-16); BILIRUBIN,TOTAL 0.4 mg/dL (0.2-1); BLOOD UREA NITROGEN 11.3 mg/dL (7-18); CALCIUM 8.7 mg/dL (8.5-10.1); CHLORIDE 105 mmol/L (98-107); CO2 25 mmol/L (21-32); CREATININE 1.2 mg/dL (0.55-1.3); GLUCOSE,RANDOM 89 mg/dL (74-106); POTASSIUM 3.9 mmol/L (3.5-5.1); SGOT/AST 28 U/L (15-37); SGPT/ALT 21 U/L (13-61); SODIUM 140 mmol/L (136-145); TOT PROT 7.2 g/dl (6.4-8.2)
--- NOTE | 2019-11-06 22:20 | PDOC ---
Documentation entered by Sade Brady SCRIBE, acting as scribe for Socorro Granda MD. Socorro Granda MD: This documentation has been prepared by the Caitlyn rebollar Sydney, SCRIBE, under my direction and personally reviewed by me in its entirety. I confirm that the documentation accurately reflects all work, treatment, procedures, and medical decision making performed by me. Attending Attestation - Resident Resident Name: Tania Capellan - ED Attending Attestation I have performed the following: I have examined & evaluated the patient, The case was reviewed & discussed with the resident, I agree w/resident's findings & plan, Exceptions are as noted - HPI HPI: 11/06/19 20:30 Patient is a 64 year old male with a significant past medical history of bladder cancer, leukemia (on imatinib), HTN, pulmonary embolism (on warfarin) who presents to the ED with four days of progressively worsening chest pain. As per patient, he was at home when his pain began, which is intermittent and radiates to his neck and back. He reports associated shortness of breath and no exacerbating or alleviating factors. Patient endorsed nausea yesterday which was relieved with over the counter medications. Patient states his pain is a 8/10 presently in the ED Denies fever, chills, vomiting, diarrhea, or urinary changes. Allergies: amoxicillin PCP: Dr. Lance Florentino - Physicial Exam PE: 11/06/19 22:11 Agree with resident exam - Medical Decision Making 11/06/19 22:11 64yo M with MMP including leukemia on daily PO chemo, bladder ca presents to the ED with CP Vitals wnl DDx includes PE vs ACS vs CHF vs PNA vs COVID vs MSK pain Plan: -labs -monitor -CXR -CTA given high risk PE (INR subtherapeutic today) -admit to tele obs Heart Score/ECG Review - History History: Moderately suspicious - Electrocardiogram EKG: Normal - Age Age: 45-65 - Risk Factors Risk Factors Heart Score: Yes Hx Hypertension, Yes Smoking History, Yes Positive family hx of cardiac disease Based on the list above the patient has:: >/=3 risk factors or Hx atherosclerotic disease - Troponin Troponin: </= normal limit - Score Heart Score - Total: 4 #1 11/06/19 22:20 Twelve-lead EKG was performed and reviewed by me. Normal sinus rhythm, rate 68. Normal axis and intervals. No ST elevations or T wave inversions. Discharge - Discharge Information Problems reviewed: Yes Clinical Impression/Diagnosis: Chest pain, COVID-19, Nausea - Follow up/Referral - Patient Discharge Instructions - Post Discharge Activity
[2019-11-07] MEDS ORDERED: WARFARIN NA 7.5 MG TABLET (FP) PO ONE (01:24)
[2019-11-07] MEDS ORDERED: KETOTIFEN FUMARATE OP PRN (08:26)
[2019-11-07] MEDS ORDERED: ALBUTEROL SO4 HFA INHALER IH PRN (08:30)
[2019-11-07] MEDS ORDERED: AZITHROMYCIN IVPB 500 MG in DEXTROSE 5%-WATER - 250 ML IVPB ONE (08:45)
[2019-11-07 09:35] LABS: INR 1.75 (0.83-1.09); PROTHROMBIN TIME (PATIENT) 20.8 SEC (9.7-13.0)
[2019-11-07] MEDS ORDERED: PANTOPRAZOLE 40 MG TABLET ONE (09:48)
[2019-11-07] MEDS ORDERED: ASPIRIN COATED 81 MG TABLET.EC ONE (09:48)
[2019-11-07] MEDS ORDERED: AZITHROMYCIN IVPB 500 MG/250 ML BAG IVPB ONE (09:49)
[2019-11-07] MEDS ORDERED: CARVEDILOL 3.125 MG TABLET (FP) ONE (09:49)
[2019-11-07] MEDS ORDERED: IMATINIB MESYLATE 400 MG PO SCH (10:00)
[2019-11-07] MEDS: CARVEDILOL 3.125 MG TABLET (FP) PO SCH (10:16)
[2019-11-07] MEDS: PANTOPRAZOLE 40 MG TABLET PO SCH (10:17)
[2019-11-07] MEDS: ASPIRIN COATED 81 MG TABLET.EC PO SCH (10:17)
--- NOTE | 2019-11-07 12:00 | EKG ---
Test Reason : Blood Pressure : / mmHG Vent. Rate : 068 BPM Atrial Rate : 068 BPM P-R Int : 168 ms QRS Dur : 078 ms QT Int : 402 ms P-R-T Axes : 046 -12 027 degrees QTc Int : 427 ms NORMAL SINUS RHYTHM NORMAL ECG NO PREVIOUS ECGS AVAILABLE Confirmed by CHIRAG GUADALUPE MD ([id number]) on 11/07/2019 12:00:03 PM Referred By: Confirmed By:CHIRAG GUADALUPE MD
--- NOTE | 2019-11-07 12:41 | CON.PULM ---
Consult Consult Specialty:: PULMONARY Referred by:: Dr Topete Reason for Consultation:: pneumonia - History of Present Illness Chief Complaint: chest pain History of Present Illness: 64yo male with h/o HTN, bladder cancer, leukemia, h/o PE who was admitted with chest pain x 5 days. Denies shortness of breath, cough or wheezing. No fevers, chills or sweats. no recent travel or sick contacts. He smokes 2 cigarettes/day. Lives with and children who are all well. CTA chest done in the ED which was negative for PE but did show faint peripheral ground glass opacities. - History Source History Provided By: Patient, Medical Record Limitations to Obtaining History: Language Barrier - Past Medical History Cardio/Vascular: Yes: HTN - Alcohol/Substance Use Hx Alcohol Use: No - Smoking History Smoking history: Current every day smoker Aproximately how many cigarettes per day: 2 Home Medications - Allergies Allergies/Adverse Reactions: Allergies Allergy/AdvReac Type Severity Reaction Status Date / Time amoxicillin Allergy Verified 11/06/19 18:45 - Home Medications Home Medications: Ambulatory Orders Azithromycin [Zithromax 250mg Tablets -] 250 mg PO UTDICT #6 tab 02/02/18 Benzonatate [Tessalon Pearls -] 100 mg PO TID PRN #21 capsule 02/02/18 Ipratropium [place] 2 spray NS BID PRN #1 spray 02/02/18 Ketotifen Fumarate [Zaditor] 2 drop OP BID PRN #1 bottle 02/02/18 Methylprednisolone [Medrol Dose Yasir] 4 mg PO ASDIR #21 tablet 02/02/18 Acid Gone Tablet Chew 11/06/19 Alprazolam [Xanax] 0.5 mg PO BID PRN 11/06/19 Carisoprodol [Soma (Nf)] 350 mg PO BID 11/06/19 Carvedilol [Coreg -] 3.125 mg PO BID 11/06/19 Imatinib Mesylate [Gleevec] 400 mg PO DAILY 11/06/19 Lansoprazole 30 mg PO DAILY 11/06/19 Warfarin Sodium [Coumadin] 5 mg PO DAILY 11/06/19 Losartan Potassium [Cozaar -] 25 mg PO DAILY 11/07/19 Review of Systems - Review of Systems Constitutional: reports: Weakness. denies: Chills, Fever Eyes: denies: Recent Change in Vision HENT: denies: Nasal Congestion, Throat Pain Neck: denies: Stiffness, Tenderness Cardiovascular: reports: Chest Pain. denies: Palpitations, Shortness of Breath Respiratory: denies: Cough, Hemoptysis, Wheezing Gastrointestinal: denies: Abdominal Pain, Nausea, Vomiting Genitourinary: denies: Dysuria, Hematuria Neurological: denies: Dizziness, Headache Endocrine: denies: Unexplained Weight Loss Physical Exam Vital Sings: Vital Signs Temperature 97.4 F L 11/07/19 10:17 Pulse Rate 66 11/07/19 10:17 Respiratory Rate 11/07/19 10:17 Blood Pressure 126/82 11/07/19 10:17 O2 Sat by Pulse Oximetry (%) 98 11/07/19 10:17 Constitutional: Yes: Calm Eyes: Yes: Conjunctiva Clear, EOM Intact HENT: Yes: Atraumatic, Normocephalic Neck: Yes: Supple, Trachea Midline Cardiovascular: Yes: Regular Rate and Rhythm Respiratory: Yes: Rales ...Clubbing: No Gastrointestinal: Yes: Normal Bowel Sounds, Soft. No: Tenderness Edema: No Neurological: Yes: Alert, Oriented Labs: CBC, BMP 11/06/19 20:30 11/06/19 20:30 Imaging - Results Cat Scan: Report Reviewed, Image Reviewed (faint peripheral ground glass opacities) Assessment/Plan Atypical Chest Pain r/o COVID19 Pneumonia Leukemia h/o Bladder Ca HTN - empiric antibiotics - f/u cultures, serologies - send inflammatory markers - O2 to keep SPo2 >90% - continue anticoagulation Thank you for this consult Rakesh Sharma MD
--- NOTE | 2019-11-07 22:26 | HP ---
Admitting History and Physical - Past Medical History Cardiovascular: Yes: HTN - Smoking History Smoking history: Current every day smoker Aproximately how many cigarettes per day: 2 - Alcohol/Substance Use Hx Alcohol Use: No Home Medications - Allergies Allergies/Adverse Reactions: Allergies Allergy/AdvReac Type Severity Reaction Status Date / Time amoxicillin Allergy Verified 11/06/19 18:45 - Home Medications Home Medications: Ambulatory Orders Azithromycin [Zithromax 250mg Tablets -] 250 mg PO UTDICT #6 tab 02/02/18 Benzonatate [Tessalon Pearls -] 100 mg PO TID PRN #21 capsule 02/02/18 Ipratropium [place] 2 spray NS BID PRN #1 spray 02/02/18 Ketotifen Fumarate [Zaditor] 2 drop OP BID PRN #1 bottle 02/02/18 Methylprednisolone [Medrol Dose Yasir] 4 mg PO ASDIR #21 tablet 02/02/18 Acid Gone Tablet Chew 11/06/19 Alprazolam [Xanax] 0.5 mg PO BID PRN 11/06/19 Carisoprodol [Soma (Nf)] 350 mg PO BID 11/06/19 Carvedilol [Coreg -] 3.125 mg PO BID 11/06/19 Imatinib Mesylate [Gleevec] 400 mg PO DAILY 11/06/19 Lansoprazole 30 mg PO DAILY 11/06/19 Warfarin Sodium [Coumadin] 5 mg PO DAILY 11/06/19 Losartan Potassium [Cozaar -] 25 mg PO DAILY 11/07/19 Physical Examination Vital Signs: Vital Signs Temperature 97.2 F L 11/07/19 19:51 Pulse Rate 63 11/07/19 19:51 Respiratory Rate 20 11/07/19 19:51 Blood Pressure 127/71 11/07/19 19:51 O2 Sat by Pulse Oximetry (%) 99 11/07/19 20:51 Labs: CBC, BMP 11/06/19 20:30 11/06/19 20:30
[2019-11-08] MEDS: CARVEDILOL 3.125 MG TABLET (FP) PO SCH ×3 (00:31→21:24)
[2019-11-08 00:42] VITALS: BMI 31.1
[2019-11-08 07:46] LABS: BASO % 0.2 % (0-2.0); EOS % 3.7 % (0-4.5); HEMATOCRIT 42.7 % (35.4-49); HEMOGLOBIN 14.7 GM/dL (11.7-16.9); LYMPH % 31.1 % (8-40); MCH 32.7 pg (25.7-33.7); MCHC 34.4 g/dl (32.0-35.9); MEAN PLT VOLUME 8.3 fl (7.5-11.1); MONO % 9.3 % (3.8-10.2); NEUT % 55.7 % (42.8-82.8); PLATELET COUNT 177 K/MM3 (134-434); RDW 13.5 % (11.9-15.9); WHITE BLOOD COUNT 5.7 K/mm3 (4.0-10.0)
--- NOTE | 2019-11-08 07:46 | PN ---
Progress Note, Physician History of Present Illness: pulmonary alert,comfortable,dyspnea improved,CP improving - Current Medication List Current Medications: Active Medications Albuterol Sulfate (Ventolin Hfa Inhaler -) 2 puff IH Q4H PRN PRN Reason: SHORT OF BREATH/WHEEZING Aspirin (Ecotrin -) 81 mg PO DAILY [facility] Last Admin: 11/07/19 10:17 Dose: Not Given Documented by: Carvedilol (Coreg -) 3.125 mg PO BID [facility] Last Admin: 11/08/19 00:31 Dose: Not Given Documented by: Azithromycin (Zithromax 500mg Ivpb (Pre-Docked)) 500 mg in 250 mls @ 250 mls/hr IVPB DAILY [facility] Stop: 11/11/19 10:59 Non-Formulary Medication (Carisoprodol) 350 mg PO BID [facility] Non-Formulary Medication (Imatinib Mesylate) 400 mg PO DAILY [facility] Non-Formulary Medication (Ketotifen Fumarate [Zaditor]) 2 drop OP BID PRN PRN Reason: eye irritation Pantoprazole Sodium (Protonix -) 40 mg PO DAILY [facility] Last Admin: 11/07/19 10:17 Dose: 40 mg Documented by: - Objective Vital Signs: Vital Signs Temperature 97.4 F L 11/08/19 02:36 Pulse Rate 57 L 11/08/19 06:00 Respiratory Rate 16 11/08/19 06:00 Blood Pressure 107/68 11/08/19 06:00 O2 Sat by Pulse Oximetry (%) 98 11/08/19 06:00 Constitutional: Yes: Well Nourished, Calm Eyes: Yes: WNL HENT: Yes: WNL Neck: Yes: WNL Cardiovascular: Yes: Regular Rate and Rhythm, S1, S2 Respiratory: Yes: Diminished Gastrointestinal: Yes: Normal Bowel Sounds, Soft Extremities: Yes: WNL Edema: No Labs: Assessment/Plan Assessment/Plan Atypical Chest Pain improving COVID19 NEG PCR Pneumonia Leukemia h/o Bladder Ca HTN - empiric antibiotics - inflammatory markers - O2 to keep SPo2 >90% - anticoagulation - repeat COVID SC DR ADAME
[2019-11-08 07:50] LABS: INR 1.97 (0.83-1.09); PROTHROMBIN TIME (PATIENT) 23.4 SEC (9.7-13.0)
[2019-11-08 08:14] LABS: ALBUMIN 3.7 g/dl (3.4-5.0); ALK PHOS 98 U/L (45-117); ANION GAP 4 MMOL/L (8-16); BILIRUBIN,TOTAL 0.5 mg/dL (0.2-1); BLOOD UREA NITROGEN 13.6 mg/dL (7-18); CALCIUM 8.6 mg/dL (8.5-10.1); CHLORIDE 108 mmol/L (98-107); CO2 30 mmol/L (21-32); CREATININE 1.2 mg/dL (0.55-1.3); GLUCOSE,RANDOM 95 mg/dL (74-106); POTASSIUM 4.1 mmol/L (3.5-5.1); SGOT/AST 23 U/L (15-37); SGPT/ALT 21 U/L (13-61); SODIUM 142 mmol/L (136-145); TOT PROT 6.9 g/dl (6.4-8.2)
[2019-11-08 08:16] LABS: LDH 180 U/L (87-246)
[2019-11-08] MEDS: ASPIRIN COATED 81 MG TABLET.EC PO SCH (09:53)
[2019-11-08] MEDS: PANTOPRAZOLE 40 MG TABLET PO SCH (09:53)
[2019-11-08] MEDS: AZITHROMYCIN IVPB 500 MG/250 ML BAG IVPB SCH (09:57)
[2019-11-08] MEDS: CARISOPRODOL 350 MG PO SCH ×2 (12:17→23:43)
--- NOTE | 2019-11-08 15:48 | ECHO ---
Name: SARAN ORTEGA Exam:Adult Echocardiogram Study Date: 11/08/2019 08:56 AM Age: 64 yrs Reason For Study: Chest pain MMode/2D Measurements & Calculations IVSd: 1.1 cm Ao root diam: 3.5 cm LVIDd: 3.9 cm LA dimension: 3.2 cm LVIDs: 2.7 cm LVPWd: 1.3 cm LVPWs: 1.8 cm EDV(Teich): 64.7 ml ESV(Teich): 26.4 ml LVOT diam: 2.0 cm RV S Colin: 12.5 cm/sec Doppler Measurements & Calculations MV E max colin: 41.0 cm/sec Ao V2 max: 97.7 cm/sec MV A max colin: 75.0 cm/sec Ao max P.8 mmHg MV E/A: 0.55 KATE(V,D): 3.5 cm2 MV dec time: 0.20 sec LV V1 max P.5 mmHg PA V2 max: 107.9 cm/sec LV V1 max: 105.6 cm/sec PA max P.7 mmHg Med Peak E' Colin: 5.3 cm/sec Med E/e': 7.8 Lat Peak E' Colin: 7.1 cm/sec Lat E/e': 5.7 Procedure A complete two-dimensional transthoracic echocardiogram was performed (2D, M-mode, Doppler and color flow Doppler). Left Ventricle The left ventricle is normal in size. Left ventricular systolic function is normal. Ejection Fraction = 55- 60%. Grade I diastolic dysfunction, (abnormal relaxation pattern). No regional wall motion abnormalit ies noted. Right Ventricle The right ventricle is normal size. The right ventricular systolic function is normal. Atria The left atrial size is normal. Right atrial size is normal. Mitral Valve The mitral valve is normal in structure and function. There is trace mitral regurgitation. Tricuspid Valve The tricuspid valve is normal in structure and function. There is mild tricuspid regurgitation. Aortic Valve The aortic valve is normal in structure and function. No aortic regurgitation is present. Pulmonic Valve The pulmonic valve is not well visualized. Great Vessels The aortic root is normal size. Pericardium/Pleura There is no pericardial effusion. Interpretation Summary The left ventricle is normal in size. Left ventricular systolic function is normal. No regional wall motion abnormalities noted. Ejection Fraction = 55-60%. Grade I diastolic dysfunction, (abnormal relaxation pattern). There is trace mitral regurgitation. There is mild tricuspid regurgitation. There is no pericardial effusion. Royer Alfaro MD 11/08/2019 03:47 PM
--- NOTE | 2019-11-08 16:45 | CON.CARD ---
Consult Consult Specialty:: Cardiology - History of Present Illness History of Present Illness: 64yo male with h/o HTN, bladder cancer, leukemia, h/o PE who was admitted with chest pain x 5 days. Denies shortness of breath, cough or wheezing. No fevers, chills or sweats. no recent travel or sick contacts. He smokes 2 cigarettes/day. Lives with and children who are all well. CTA chest done in the ED which was negative for PE but did show faint peripheral ground glass opacities. - History Source History Provided By: Patient, Medical Record - Past Medical History Cardio/Vascular: Yes: HTN - Alcohol/Substance Use Hx Alcohol Use: No - Smoking History Smoking history: Current every day smoker Aproximately how many cigarettes per day: 2 Home Medications - Allergies Allergies/Adverse Reactions: Allergies Allergy/AdvReac Type Severity Reaction Status Date / Time amoxicillin Allergy Verified 11/06/19 18:45 - Home Medications Home Medications: Ambulatory Orders Azithromycin [Zithromax 250mg Tablets -] 250 mg PO UTDICT #6 tab 02/02/18 Benzonatate [Tessalon Pearls -] 100 mg PO TID PRN #21 capsule 02/02/18 Ipratropium [place] 2 spray NS BID PRN #1 spray 02/02/18 Ketotifen Fumarate [Zaditor] 2 drop OP BID PRN #1 bottle 02/02/18 Methylprednisolone [Medrol Dose Yasir] 4 mg PO ASDIR #21 tablet 02/02/18 Acid Gone Tablet Chew 11/06/19 Alprazolam [Xanax] 0.5 mg PO BID PRN 11/06/19 Carisoprodol [Soma (Nf)] 350 mg PO BID 11/06/19 Carvedilol [Coreg -] 3.125 mg PO BID 11/06/19 Imatinib Mesylate [Gleevec] 400 mg PO DAILY 11/06/19 Lansoprazole 30 mg PO DAILY 11/06/19 Warfarin Sodium [Coumadin] 5 mg PO DAILY 11/06/19 Losartan Potassium [Cozaar -] 25 mg PO DAILY 11/07/19 Review of Systems - Review of Systems Constitutional: reports: No Symptoms Eyes: reports: No Symptoms HENT: reports: No Symptoms Neck: reports: No Symptoms Cardiovascular: reports: Chest Pain Respiratory: reports: No Symptoms Gastrointestinal: reports: No Symptoms Genitourinary: reports: No Symptoms Breasts: reports: No Symptoms Reported Musculoskeletal: reports: No Symptoms Integumentary: reports: No Symptoms Neurological: reports: No Symptoms Endocrine: reports: No Symptoms Hematology/Lymphatic: reports: No Symptoms Psychiatric: reports: No Symptoms Vital Signs: Vital Signs Temperature 98.6 F 11/08/19 14:00 Pulse Rate 62 11/08/19 14:00 Respiratory Rate 20 11/08/19 14:00 Blood Pressure 122/70 11/08/19 14:00 O2 Sat by Pulse Oximetry (%) 98 11/08/19 12:48 Constitutional: Yes: Well Nourished, No Distress, Calm Eyes: Yes: WNL, Conjunctiva Clear, EOM Intact HENT: Yes: WNL, Atraumatic, Normocephalic Neck: Yes: WNL, Supple, Trachea Midline Respiratory: Yes: WNL, Regular, CTA Bilaterally Gastrointestinal: Yes: WNL, Normal Bowel Sounds Renal/: Yes: WNL Cardiovascular: Yes: WNL, Regular Rate and Rhythm Musculoskeletal: Yes: WNL Extremities: Yes: WNL Integumentary: Yes: WNL Neurological: Yes: WNL, Alert, Oriented ...Motor Strength: WNL Psychiatric: Yes: WNL, Alert, Oriented - Other Data Labs, Other Data: CBC, BMP 11/08/19 06:58 11/08/19 06:58 INR, PTT INR 1.97 (0.83-1.09) H 11/08/19 06:58 Troponin, BNP 11/08/19 06:58 Troponin I < 0.02 Troponin, BNP 11/08/19 06:58 Troponin I < 0.02 Imaging - Results Chest X-ray: Image Reviewed (/neg) Cat Scan: Report Reviewed (chest ground glass opacities) EKG: Image Reviewed (sr wnl) Problem List - Problems (1) COVID-19 Code(s): U07.1 - COVID POSITIVE (2) Chest pain Code(s): R07.9 - CHEST PAIN, UNSPECIFIED (3) Nausea Code(s): R11.0 - NAUSEA (4) Cough Code(s): R05 - COUGH (5) Malaise Code(s): R53.81 - OTHER MALAISE (6) URI (upper respiratory infection) Code(s): J06.9 - ACUTE UPPER RESPIRATORY INFECTION, UNSPECIFIED Qualifiers: URI type: unspecified URI Qualified Code(s): J06.9 - Acute upper respiratory infection, unspecified Assessment/Plan Atypical CP Abn CT chest COVID neg h/o PE HTN ECHO nl EF Plan; Lipids BNP Cont ABX cont AC rx as per pulmonary MIBI stress test prior to discharge
[2019-11-08] MEDS ORDERED: WARFARIN NA 7.5 MG TABLET (FP) PO ONE (20:00)
[2019-11-08] MEDS: ALPRAZolam 0.25 MG TABLET PO SCH (21:25)
--- NOTE | 2019-11-08 22:33 | PN ---
Progress Note, Physician History of Present Illness: No further chest pain - Current Medication List Current Medications: Active Medications Albuterol Sulfate (Ventolin Hfa Inhaler -) 2 puff IH Q4H PRN PRN Reason: SHORT OF BREATH/WHEEZING Alprazolam (Xanax -) 0.5 mg PO BID [facility] Last Admin: 11/08/19 21:25 Dose: 0.5 mg Documented by: Aspirin (Ecotrin -) 81 mg PO DAILY [facility] Last Admin: 11/08/19 09:53 Dose: 81 mg Documented by: Carvedilol (Coreg -) 3.125 mg PO BID [facility] Last Admin: 11/08/19 21:24 Dose: 3.125 mg Documented by: Azithromycin (Zithromax 500mg Ivpb (Pre-Docked)) 500 mg in 250 mls @ 250 mls/hr IVPB DAILY [facility] Stop: 11/11/19 10:59 Last Admin: 11/08/19 09:57 Dose: 250 mls/hr Documented by: Non-Formulary Medication (Carisoprodol) 350 mg PO BID [facility] Last Admin: 11/08/19 12:17 Dose: 350 mg Documented by: Non-Formulary Medication (Imatinib Mesylate) 400 mg PO DAILY [facility] Pantoprazole Sodium (Protonix -) 40 mg PO DAILY [facility] Last Admin: 11/08/19 09:53 Dose: 40 mg Documented by: - Objective Vital Signs: Vital Signs Temperature 97.5 F L 11/08/19 18:08 Pulse Rate 58 L 11/08/19 18:08 Respiratory Rate 20 11/08/19 18:08 Blood Pressure 158/82 11/08/19 18:08 O2 Sat by Pulse Oximetry (%) 98 11/08/19 18:08 Neck: Yes: WNL, Supple Cardiovascular: Yes: WNL, Regular Rate and Rhythm Respiratory: Yes: WNL, Regular, CTA Bilaterally Gastrointestinal: Yes: WNL, Normal Bowel Sounds, Soft Labs: CBC, BMP 11/08/19 06:58 11/08/19 06:58 INR, PTT INR 1.97 (0.83-1.09) H 11/08/19 06:58 Problem List - Problems (1) Chest pain Assessment/Plan: Troponin negative Cardio consult Stress test prior to discharge Code(s): R07.9 - CHEST PAIN, UNSPECIFIED (2) Abnormal CT scan Assessment/Plan: Ground glass opacities on ct scan chest Cont IV zithro Pulmonary consult noted Repeat COVID testing Code(s): R93.89 - ABNORMAL FINDINGS ON DX IMAGING OF OTH BODY STRUCTURES (3) HTN (hypertension) Assessment/Plan: Cont coreg BP stable Will add cozaar pt is taking at home Code(s): I10 - ESSENTIAL (PRIMARY) HYPERTENSION (4) Pulmonary embolus Assessment/Plan: Cont coumadin Daily PT/INR Code(s): I26.99 - OTHER PULMONARY EMBOLISM WITHOUT ACUTE COR PULMONALE (5) Leukemia Assessment/Plan: Onco consult Code(s): C95.90 - LEUKEMIA, UNSPECIFIED NOT HAVING ACHIEVED REMISSION (6) Bladder cancer Code(s): C67.9 - MALIGNANT NEOPLASM OF BLADDER, UNSPECIFIED
[2019-11-09 06:44] LABS: BASO % 0.3 % (0-2.0); EOS % 3.7 % (0-4.5); HEMATOCRIT 42.9 % (35.4-49); HEMOGLOBIN 14.8 GM/dL (11.7-16.9); LYMPH % 30.1 % (8-40); MCH 32.8 pg (25.7-33.7); MCHC 34.6 g/dl (32.0-35.9); MEAN CELL VOLUME 94.9 fl (80-96); MEAN PLT VOLUME 8.6 fl (7.5-11.1); MONO % 9.8 % (3.8-10.2); NEUT % 56.1 % (42.8-82.8); PLATELET COUNT 177 K/MM3 (134-434); RBC 4.52 M/mm3 (4.00-5.60); RDW 13.3 % (11.9-15.9); WHITE BLOOD COUNT 6.7 K/mm3 (4.0-10.0)
[2019-11-09 07:03] LABS: INR 1.74 (0.83-1.09); PROTHROMBIN TIME (PATIENT) 20.6 SEC (9.7-13.0)
[2019-11-09 07:20] LABS: ALBUMIN 3.7 g/dl (3.4-5.0); ALK PHOS 102 U/L (45-117); ANION GAP 7 MMOL/L (8-16); BILIRUBIN,TOTAL 0.4 mg/dL (0.2-1); BLOOD UREA NITROGEN 11.8 mg/dL (7-18); CALCIUM 8.4 mg/dL (8.5-10.1); CHLORIDE 105 mmol/L (98-107); CHOLESTEROL 149 mg/dL (50-200); CO2 29 mmol/L (21-32); CREATININE 1.1 mg/dL (0.55-1.3); GLUCOSE,RANDOM 86 mg/dL (74-106); HDL CHOLESTEROL 31 mg/dL (40-60); LDL CHOLESTEROL (ONLY SJRH) 98 mg/dL (5-100); N-TERMINAL BNP 106.3 pg/ml (5-125); POTASSIUM 4.2 mmol/L (3.5-5.1); SGOT/AST 23 U/L (15-37); SGPT/ALT 21 U/L (13-61); SODIUM 141 mmol/L (136-145); TOT PROT 6.9 g/dl (6.4-8.2); TRIGLYCERIDES 161 mg/dL (0-150)
--- NOTE | 2019-11-09 07:46 | PN ---
Progress Note, Physician History of Present Illness: pulmonary alert,-sob,c/o back pain,-cp - Current Medication List Current Medications: Active Medications Albuterol Sulfate (Ventolin Hfa Inhaler -) 2 puff IH Q4H PRN PRN Reason: SHORT OF BREATH/WHEEZING Alprazolam (Xanax -) 0.5 mg PO BID [facility] Last Admin: 11/08/19 21:25 Dose: 0.5 mg Documented by: Aspirin (Ecotrin -) 81 mg PO DAILY [facility] Last Admin: 11/08/19 09:53 Dose: 81 mg Documented by: Carvedilol (Coreg -) 3.125 mg PO BID [facility] Last Admin: 11/08/19 21:24 Dose: 3.125 mg Documented by: Azithromycin (Zithromax 500mg Ivpb (Pre-Docked)) 500 mg in 250 mls @ 250 mls/hr IVPB DAILY [facility] Stop: 11/11/19 10:59 Last Admin: 11/08/19 09:57 Dose: 250 mls/hr Documented by: Non-Formulary Medication (Carisoprodol) 350 mg PO BID [facility] Last Admin: 11/08/19 23:43 Dose: Not Given Documented by: Non-Formulary Medication (Imatinib Mesylate) 400 mg PO DAILY [facility] Pantoprazole Sodium (Protonix -) 40 mg PO DAILY [facility] Last Admin: 11/08/19 09:53 Dose: 40 mg Documented by: Warfarin Sodium (Coumadin -) 5 mg PO DAILY@1800 [facility] - Objective Vital Signs: Vital Signs Temperature 97.8 F 11/09/19 06:00 Pulse Rate 59 L 11/09/19 06:00 Respiratory Rate 20 11/09/19 06:00 Blood Pressure 105/68 11/09/19 06:00 O2 Sat by Pulse Oximetry (%) 95 11/08/19 21:00 Constitutional: Yes: Well Nourished, Calm Eyes: Yes: WNL HENT: Yes: WNL Neck: Yes: WNL Cardiovascular: Yes: Regular Rate and Rhythm, S1, S2 Respiratory: Yes: Diminished Gastrointestinal: Yes: Normal Bowel Sounds, Soft Extremities: Yes: WNL Edema: No Labs: CBC, BMP 11/09/19 05:20 11/09/19 05:20 INR, PTT INR 1.74 (0.83-1.09) H 11/09/19 05:20 Laboratory Tests 11/08/19 19:54 SARS-CoV-2 Ab Interp Non-reactive Assessment/Plan Assessment/Plan Atypical Chest Pain improving COVID19 NEG PCR Pneumonia Leukemia h/o Bladder Ca HTN - empiric antibiotics - inflammatory markers - O2 to keep SPo2 >90% - anticoagulation - repeat COVID CA pending - stress test DR ADAME
[2019-11-09] MEDS: PANTOPRAZOLE 40 MG TABLET PO SCH (09:29)
[2019-11-09] MEDS: AZITHROMYCIN IVPB 500 MG/250 ML BAG IVPB SCH (09:29)
[2019-11-09] MEDS: CARVEDILOL 3.125 MG TABLET (FP) PO SCH ×2 (09:29→23:44)
[2019-11-09] MEDS: ALPRAZolam 0.25 MG TABLET PO SCH ×2 (09:29→23:44)
[2019-11-09] MEDS: ASPIRIN COATED 81 MG TABLET.EC PO SCH (09:29)
[2019-11-09] MEDS: CARISOPRODOL 350 MG PO SCH ×2 (09:30→23:44)
--- NOTE | 2019-11-09 10:39 | EKG ---
Test Reason : Blood Pressure : / mmHG Vent. Rate : 054 BPM Atrial Rate : 054 BPM P-R Int : 164 ms QRS Dur : 082 ms QT Int : 448 ms P-R-T Axes : 035 -16 016 degrees QTc Int : 424 ms SINUS BRADYCARDIA OTHERWISE NORMAL ECG WHEN COMPARED WITH ECG OF 06-NOV-2019 18:55, NO SIGNIFICANT CHANGE WAS FOUND Confirmed by Dominick Poole MD ([id number]) on 11/09/2019 10:38:52 AM Referred By: ROSLYN LIEBERMAN Confirmed By:Dominick Poole MD
--- NOTE | 2019-11-09 15:13 | PN ---
Progress Note, Physician History of Present Illness: 64yo male with h/o HTN, bladder cancer, leukemia, h/o PE who was admitted with chest pain x 5 days. Denies shortness of breath, cough or wheezing. No fevers, chills or sweats. no recent travel or sick contacts. He smokes 2 cigarettes/day. Lives with and children who are all well. CTA chest done in the ED which was negative for PE but did show faint peripheral ground glass opacities. - Current Medication List Current Medications: Active Medications Albuterol Sulfate (Ventolin Hfa Inhaler -) 2 puff IH Q4H PRN PRN Reason: SHORT OF BREATH/WHEEZING Alprazolam (Xanax -) 0.5 mg PO BID [facility] Last Admin: 11/09/19 09:29 Dose: 0.5 mg Documented by: Aspirin (Ecotrin -) 81 mg PO DAILY [facility] Last Admin: 11/09/19 09:29 Dose: 81 mg Documented by: Carvedilol (Coreg -) 3.125 mg PO BID [facility] Last Admin: 11/09/19 09:29 Dose: 3.125 mg Documented by: Azithromycin (Zithromax 500mg Ivpb (Pre-Docked)) 500 mg in 250 mls @ 250 mls/hr IVPB DAILY [facility] Stop: 11/11/19 10:59 Last Admin: 11/09/19 09:29 Dose: 250 mls/hr Documented by: Non-Formulary Medication (Carisoprodol) 350 mg PO BID [facility] Last Admin: 11/09/19 09:30 Dose: 350 mg Documented by: Non-Formulary Medication (Imatinib Mesylate) 400 mg PO DAILY [facility] Pantoprazole Sodium (Protonix -) 40 mg PO DAILY [facility] Last Admin: 11/09/19 09:29 Dose: 40 mg Documented by: Warfarin Sodium (Coumadin -) 5 mg PO DAILY@1800 [facility] - Objective Vital Signs: Vital Signs Temperature 97.9 F 11/09/19 13:29 Pulse Rate 63 11/09/19 13:29 Respiratory Rate 20 11/09/19 13:29 Blood Pressure 130/70 11/09/19 13:29 O2 Sat by Pulse Oximetry (%) 98 11/09/19 13:29 Eyes: Yes: WNL, Conjunctiva Clear, EOM Intact HENT: Yes: WNL, Atraumatic, Normocephalic Neck: Yes: WNL, Supple, Trachea Midline Cardiovascular: Yes: WNL, Regular Rate and Rhythm Respiratory: Yes: WNL, Regular, CTA Bilaterally Gastrointestinal: Yes: WNL, Normal Bowel Sounds Genitourinary: Yes: WNL Musculoskeletal: Yes: WNL Extremities: Yes: WNL Edema: No Integumentary: Yes: WNL Neurological: Yes: WNL, Alert, Oriented ...Motor Strength: WNL Psychiatric: Yes: WNL Labs: CBC, BMP 11/09/19 05:20 11/09/19 05:20 INR, PTT INR 1.74 (0.83-1.09) H 11/09/19 05:20 Problem List - Problems (1) COVID-19 Code(s): U07.1 - COVID POSITIVE (2) Chest pain Code(s): R07.9 - CHEST PAIN, UNSPECIFIED (3) Nausea Code(s): R11.0 - NAUSEA (4) Cough Code(s): R05 - COUGH (5) Malaise Code(s): R53.81 - OTHER MALAISE (6) URI (upper respiratory infection) Code(s): J06.9 - ACUTE UPPER RESPIRATORY INFECTION, UNSPECIFIED Qualifiers: URI type: unspecified URI Qualified Code(s): J06.9 - Acute upper respiratory infection, unspecified Assessment/Plan Atypical CP Abn CT chest COVID neg h/o PE HTN ECHO nl EF Plan; Lipids BNP Cont ABX cont AC rx as per pulmonary MIBI stress test in am
--- NOTE | 2019-11-09 15:24 | CONSULT ---
Consultation: REQUESTING PROVIDER: Dr. Topete CONSULT REQUEST: We have been asked to medically evaluate this patient for CML. HISTORY OF PRESENT ILLNESS: Patient is a 64 year old male with past medical history of Bladder cancer, CML (on Imatinib), HTN, PE (on warfarin), presented to the ED for chest pain of 5 days. Chest CTA was done which was negative for PE, but revealed faint patchy ground glass infiltrates. COVID-19 Ag/Ab nonreactive. We were consulted as patient has history of CML on Imatinib, and follows up with Dr. Anderson. Patient reports pain on his back, both arms, and b/l chest. He denies any fevers, chills, headache, dizziness, shortness of breath, palpitations, abdominal pain, diarrhea, urinary symptoms. PMHx:Bladder cancer, CML (on Imatinib), HTN, PE PSHx: bladder tumor resection, ex-lap for ?sbo Allergies: Amoxicillin SHx; smokes 2sticks per day, denies alcohol use, denies illicit drug use REVIEW OF SYSTEMS: CONSTITUTIONAL: Absent: fever, chills, diaphoresis, generalized weakness, malaise, loss of appetite, weight change HEENT: Absent: rhinorrhea, nasal congestion, throat pain, throat swelling, difficulty swallowing, mouth swelling, ear pain, eye pain, visual changes CARDIOVASCULAR: chest pain Absent: syncope, palpitations, irregular heart rate, lightheadedness, peripheral edema RESPIRATORY: Absent: cough, shortness of breath, dyspnea with exertion, orthopnea, wheezing, stridor, hemoptysis GASTROINTESTINAL: Absent: abdominal pain, abdominal distension, nausea, vomiting, diarrhea, constipation, melena, hematochezia GENITOURINARY: Absent: dysuria, frequency, urgency, hesitancy, hematuria, flank pain, genital pain MUSCULOSKELETAL: back pain, b/l shoulder pain Absent: myalgia, arthralgia, joint swelling, neck pain SKIN: Absent: rash, itching, pallor HEMATOLOGIC/IMMUNOLOGIC: Absent: easy bleeding, easy bruising, lymphadenopathy, frequent infections ENDOCRINE: Absent: unexplained weight gain, unexplained weight loss, heat intolerance, cold intolerance NEUROLOGIC: Absent: headache, focal weakness or paresthesias, dizziness, unsteady gait, seizure, mental status changes, bladder or bowel incontinence PSYCHIATRIC: Absent: anxiety, depression, suicidal or homicidal ideation, hallucinations. PHYSICAL EXAMINATION Vital Signs - 24 hr 11/08/19 11/08/19 11/09/19 18:08 21:00 01:37 Temperature 97.5 F L 98.4 F 98 F Pulse Rate 58 L 55 L 56 L Respiratory 20 20 20 Rate Blood Pressure 158/82 116/67 105/63 O2 Sat by Pulse 98 95 Oximetry (%) 11/09/19 11/09/19 11/09/19 06:00 09:00 09:55 Temperature 97.8 F 97.9 F Pulse Rate 59 L 64 Respiratory 20 20 20 Rate Blood Pressure 105/68 117/69 O2 Sat by Pulse 96 96 Oximetry (%) 11/09/19 13:29 Temperature 97.9 F Pulse Rate 63 Respiratory 20 Rate Blood Pressure 130/70 O2 Sat by Pulse 98 Oximetry (%) GENERAL: Awake, alert, and fully oriented, in no acute distress. HEAD: Normal with no signs of trauma. EYES: PERRLA, EOMI, sclera anicteric, conjunctiva clear. EARS, NOSE, THROAT: Moist mucous membranes. NECK: Normal range of motion, supple LUNGS: Decreased breath sounds on bilateral bases HEART: Regular rate and rhythm, normal S1 and S2 ABDOMEN: Soft, nontender, not distended, normoactive bowel sounds MUSCULOSKELETAL: Normal range of motion at all joints. No bony deformities or tenderness. No CVA tenderness. LOWER EXTREMITIES: 2+ pulses, warm, well-perfused. No calf tenderness. No peripheral edema. NEUROLOGICAL: Cranial nerves II-XII intact. Normal speech. PSYCHIATRIC: Cooperative. Good eye contact. Appropriate mood and affect. SKIN: Warm, dry, normal turgor Laboratory Results - last 24 hr 11/08/19 11/08/19 11/09/19 17:00 19:54 05:20 WBC RBC Hgb Hct MCV MCH MCHC RDW Plt Count MPV Absolute Neuts (auto) Neutrophils % Lymphocytes % Monocytes % Eosinophils % Basophils % Nucleated RBC % PT with INR INR Sodium 141 Potassium 4.2 Chloride 105 Carbon Dioxide 29 Anion Gap 7 L BUN 11.8 Creatinine 1.1 Est GFR (CKD-EPI)AfAm 82.95 Est GFR (CKD-EPI)NonAf 71.57 Random Glucose 86 Calcium 8.4 L Total Bilirubin 0.4 AST 23 ALT 21 Alkaline Phosphatase 102 Creatine Kinase 88 Troponin I < 0.02 B-Natriuretic Peptide 106.3 Total Protein 6.9 Albumin 3.7 Triglycerides 161 H Cholesterol 149 Total LDL Cholesterol 98 HDL Cholesterol 31 L COVID-19 (DILSHAD) Not detected SARS-CoV-2 Ab Interp Non-reactive 11/09/19 11/09/19 05:20 05:20 WBC 6.7 RBC 4.52 Hgb 14.8 Hct 42.9 MCV 94.9 MCH 32.8 MCHC 34.6 RDW 13.3 Plt Count 177 MPV 8.6 Absolute Neuts (auto) 3.7 Neutrophils % 56.1 Lymphocytes % 30.1 Monocytes % 9.8 Eosinophils % 3.7 Basophils % 0.3 Nucleated RBC % 0 PT with INR 20.60 H INR 1.74 H Sodium Potassium Chloride Carbon Dioxide Anion Gap BUN Creatinine Est GFR (CKD-EPI)AfAm Est GFR (CKD-EPI)NonAf Random Glucose Calcium Total Bilirubin AST ALT Alkaline Phosphatase Creatine Kinase Troponin I B-Natriuretic Peptide Total Protein Albumin Triglycerides Cholesterol Total LDL Cholesterol HDL Cholesterol COVID-19 (DILSHAD) SARS-CoV-2 Ab Interp Active Medications Generic Name Dose Route Start Last Admin Trade Name Freq PRN Reason Stop Dose Admin Albuterol Sulfate 2 puff 11/07/19 08:30 Ventolin Hfa Inhaler - IH Q4H PRN SHORT OF BREATH/WHEEZING Alprazolam 0.5 mg 11/08/19 22:00 11/09/19 09:29 Xanax - PO 0.5 mg BID [facility] Administration Aspirin 81 mg 11/07/19 10:00 11/09/19 09:29 Ecotrin - PO 81 mg DAILY [facility] Administration Carvedilol 3.125 mg 11/07/19 10:00 11/09/19 09:29 Coreg - PO 3.125 mg BID [facility] Administration Azithromycin 500 mg in 250 mls @ 250 mls/hr 11/08/19 10:00 11/09/19 09:29 Zithromax 500mg Ivpb (Pre-Docked) IVPB 11/11/19 10:59 250 mls/hr DAILY [facility] Administration Non-Formulary Medication 350 mg 11/08/19 12:15 11/09/19 09:30 Carisoprodol PO 350 mg BID [facility] Administration Non-Formulary Medication 400 mg 11/07/19 10:00 Imatinib Mesylate PO DAILY [facility] Pantoprazole Sodium 40 mg 11/07/19 10:00 11/09/19 09:29 Protonix - PO 40 mg DAILY [facility] Administration Warfarin Sodium 5 mg 11/09/19 18:00 Coumadin - PO DAILY@1800 [facility] ASSESSMENT/PLAN: Patient is a 64 year old male with past medical history of Bladder cancer, CML (on Imatinib), HTN, PE (on warfarin), presented to the ED for chest pain of 5 days. Chest CTA was done which was negative for PE, but revealed faint patchy ground glass infiltrates. COVID-19 Ag/Ab nonreactive. We were consulted as patient has history of CML on Imatinib, and follows up with Dr. Anderson. #Hx of CML -diagnosed in 2017 -Continue Imantinib 400mg daily (non-formulary), prescription called in to patient's pharmacy -patient is scheduled for follow up this month with Dr. Anderson. Dispo: We will continue to follow the patient. Thank you for this consultative opportunity. Visit type - Emergency Visit Emergency Visit: Yes ED Registration Date: 11/07/19 Care time: The patient presented to the Emergency Department on the above date and was hospitalized for further evaluation of their emergent condition. - New Patient This patient is new to me today: Yes Date on this admission: 11/09/19 - Critical Care Critical Care patient: No ATTENDING PHYSICIAN STATEMENT I saw and evaluated the patient. I reviewed the resident's note and discussed the case with the resident. I agree with the resident's findings and plan as documented. SUBJECTIVE: OBJECTIVE: ASSESSMENT AND PLAN:
[2019-11-09] MEDS: WARFARIN NA 5 MG TABLET PO SCH (17:28)
--- NOTE | 2019-11-09 17:44 | PN ---
Teaching Attending Note Name of Resident: Lenora Man ATTENDING PHYSICIAN STATEMENT I saw and evaluated the patient. I reviewed the resident's note and discussed the case with the resident. I agree with the resident's findings and plan as documented. ASSESSMENT AND PLAN: 64 year old gentleman with past medical history of Bladder cancer, CML (on Imatinib), HTN, PE (on warfarin), presented to the ED for chest pain of 5 days. Chest CTA was done which was negative for PE, but revealed faint patchy ground glass infiltrates. COVID-19 Ag/Ab nonreactive. We were consulted as patient has history of CML on Imatinib, and follows up with Dr. Anderson. Recommend: 1) CML, Chronic Phase. On Imatinib 400 mg po daily. We checked with pharmacy and he has the prescription ready. Pt informed 2) Will f/u with Dr. Anderson 12/07 3) Thank you for this consultation
--- NOTE | 2019-11-09 22:05 | PN ---
Progress Note, Physician History of Present Illness: No new complaints - Current Medication List Current Medications: Active Medications Albuterol Sulfate (Ventolin Hfa Inhaler -) 2 puff IH Q4H PRN PRN Reason: SHORT OF BREATH/WHEEZING Alprazolam (Xanax -) 0.5 mg PO BID [facility] Last Admin: 11/09/19 09:29 Dose: 0.5 mg Documented by: Aspirin (Ecotrin -) 81 mg PO DAILY [facility] Last Admin: 11/09/19 09:29 Dose: 81 mg Documented by: Carvedilol (Coreg -) 3.125 mg PO BID [facility] Last Admin: 11/09/19 09:29 Dose: 3.125 mg Documented by: Azithromycin (Zithromax 500mg Ivpb (Pre-Docked)) 500 mg in 250 mls @ 250 mls/hr IVPB DAILY [facility] Stop: 11/11/19 10:59 Last Admin: 11/09/19 09:29 Dose: 250 mls/hr Documented by: Non-Formulary Medication (Carisoprodol) 350 mg PO BID [facility] Last Admin: 11/09/19 09:30 Dose: 350 mg Documented by: Non-Formulary Medication (Imatinib Mesylate) 400 mg PO DAILY [facility] Pantoprazole Sodium (Protonix -) 40 mg PO DAILY [facility] Last Admin: 11/09/19 09:29 Dose: 40 mg Documented by: Warfarin Sodium (Coumadin -) 5 mg PO DAILY@1800 [facility] Last Admin: 11/09/19 17:28 Dose: 5 mg Documented by: - Objective Vital Signs: Vital Signs Temperature 97.3 F L 11/09/19 18:00 Pulse Rate 57 L 11/09/19 18:00 Respiratory Rate 18 11/09/19 18:00 Blood Pressure 127/67 11/09/19 18:00 O2 Sat by Pulse Oximetry (%) 98 11/09/19 18:00 Cardiovascular: Yes: WNL, Regular Rate and Rhythm Respiratory: Yes: WNL, Regular, CTA Bilaterally Gastrointestinal: Yes: WNL, Normal Bowel Sounds, Soft Labs: CBC, BMP 11/09/19 05:20 11/09/19 05:20 INR, PTT INR 1.74 (0.83-1.09) H 11/09/19 05:20 Problem List - Problems (1) Chest pain Assessment/Plan: Troponin negative Pt for stress test in am DC planning if negative Code(s): R07.9 - CHEST PAIN, UNSPECIFIED (2) Abnormal CT scan Assessment/Plan: Ground glass opacities on ct scan chest Cont IV zithro Pulmonary consult noted COVID negative Code(s): R93.89 - ABNORMAL FINDINGS ON DX IMAGING OF OTH BODY STRUCTURES (3) HTN (hypertension) Assessment/Plan: Cont coreg BP stable Will add cozaar pt is taking at home Code(s): I10 - ESSENTIAL (PRIMARY) HYPERTENSION (4) Pulmonary embolus Assessment/Plan: Cont coumadin Daily PT/INR Code(s): I26.99 - OTHER PULMONARY EMBOLISM WITHOUT ACUTE COR PULMONALE (5) Leukemia Assessment/Plan: Onco consult Code(s): C95.90 - LEUKEMIA, UNSPECIFIED NOT HAVING ACHIEVED REMISSION (6) Bladder cancer Code(s): C67.9 - MALIGNANT NEOPLASM OF BLADDER, UNSPECIFIED
[2019-11-10 07:02] LABS: INR 2.43 (0.83-1.09); PROTHROMBIN TIME (PATIENT) 28.9 SEC (9.7-13.0)
--- NOTE | 2019-11-10 07:11 | PN ---
Progress Note, Physician History of Present Illness: PULMONARY ALERT,COMFORTABLE,-C/O SOB,-CP - Current Medication List Current Medications: Active Medications Albuterol Sulfate (Ventolin Hfa Inhaler -) 2 puff IH Q4H PRN PRN Reason: SHORT OF BREATH/WHEEZING Alprazolam (Xanax -) 0.5 mg PO BID [facility] Last Admin: 11/09/19 23:44 Dose: 0.5 mg Documented by: Aspirin (Ecotrin -) 81 mg PO DAILY [facility] Last Admin: 11/09/19 09:29 Dose: 81 mg Documented by: Carvedilol (Coreg -) 3.125 mg PO BID [facility] Last Admin: 11/09/19 23:44 Dose: 3.125 mg Documented by: Azithromycin (Zithromax 500mg Ivpb (Pre-Docked)) 500 mg in 250 mls @ 250 mls/hr IVPB DAILY [facility] Stop: 11/11/19 10:59 Last Admin: 11/09/19 09:29 Dose: 250 mls/hr Documented by: Non-Formulary Medication (Carisoprodol) 350 mg PO BID [facility] Last Admin: 11/09/19 23:44 Dose: 350 mg Documented by: Non-Formulary Medication (Imatinib Mesylate) 400 mg PO DAILY [facility] Pantoprazole Sodium (Protonix -) 40 mg PO DAILY [facility] Last Admin: 11/09/19 09:29 Dose: 40 mg Documented by: Warfarin Sodium (Coumadin -) 5 mg PO DAILY@1800 [facility] Last Admin: 11/09/19 17:28 Dose: 5 mg Documented by: - Objective Vital Signs: Vital Signs Temperature 97.8 F 11/10/19 01:23 Pulse Rate 63 11/10/19 01:23 Respiratory Rate 20 11/10/19 01:23 Blood Pressure 118/62 11/10/19 01:23 O2 Sat by Pulse Oximetry (%) 98 11/09/19 18:00 Constitutional: Yes: Well Nourished, Calm Eyes: Yes: WNL HENT: Yes: WNL Neck: Yes: WNL Cardiovascular: Yes: Regular Rate and Rhythm, S1, S2 Respiratory: Yes: CTA Bilaterally Gastrointestinal: Yes: Normal Bowel Sounds, Soft Extremities: Yes: WNL Edema: No Labs: CBC, BMP Assessment/Plan Assessment/Plan Atypical Chest Pain improved COVID19 NEG PCR Pneumonia Leukemia h/o Bladder Ca HTN - zithromax - O2 to keep SPo2 >90% - anticoagulation - repeat COVID PA negative - S/P stress test - f/u chest ct outpatient DR ADAME
[2019-11-10] MEDS: ALPRAZolam 0.25 MG TABLET PO SCH ×2 (10:36→22:28)
[2019-11-10] MEDS: PANTOPRAZOLE 40 MG TABLET PO SCH (10:36)
[2019-11-10] MEDS: ASPIRIN COATED 81 MG TABLET.EC PO SCH (10:36)
[2019-11-10] MEDS: CARISOPRODOL 350 MG PO SCH ×2 (10:36→22:33)
--- NOTE | 2019-11-10 11:40 | PN ---
Progress Note, Physician History of Present Illness: 64yo male with h/o HTN, bladder cancer, leukemia, h/o PE who was admitted with chest pain x 5 days. Denies shortness of breath, cough or wheezing. No fevers, chills or sweats. no recent travel or sick contacts. He smokes 2 cigarettes/day. Lives with and children who are all well. CTA chest done in the ED which was negative for PE but did show faint peripheral ground glass opacities. - Current Medication List Current Medications: Active Medications Albuterol Sulfate (Ventolin Hfa Inhaler -) 2 puff IH Q4H PRN PRN Reason: SHORT OF BREATH/WHEEZING Alprazolam (Xanax -) 0.5 mg PO BID [facility] Last Admin: 11/10/19 10:36 Dose: 0.5 mg Documented by: Aspirin (Ecotrin -) 81 mg PO DAILY [facility] Last Admin: 11/10/19 10:36 Dose: 81 mg Documented by: Carvedilol (Coreg -) 3.125 mg PO BID [facility] Last Admin: 11/09/19 23:44 Dose: 3.125 mg Documented by: Azithromycin (Zithromax 500mg Ivpb (Pre-Docked)) 500 mg in 250 mls @ 250 mls/hr IVPB DAILY [facility] Stop: 11/11/19 10:59 Last Admin: 11/09/19 09:29 Dose: 250 mls/hr Documented by: Non-Formulary Medication (Carisoprodol) 350 mg PO BID [facility] Last Admin: 11/10/19 10:36 Dose: 350 mg Documented by: Non-Formulary Medication (Imatinib Mesylate) 400 mg PO DAILY [facility] Pantoprazole Sodium (Protonix -) 40 mg PO DAILY [facility] Last Admin: 11/10/19 10:36 Dose: 40 mg Documented by: Warfarin Sodium (Coumadin -) 5 mg PO DAILY@1800 [facility] Last Admin: 11/09/19 17:28 Dose: 5 mg Documented by: - Objective Vital Signs: Vital Signs Temperature 97.8 F 11/10/19 01:23 Pulse Rate 53 L 11/10/19 06:00 Respiratory Rate 18 11/10/19 06:00 Blood Pressure 114/72 11/10/19 06:00 O2 Sat by Pulse Oximetry (%) 98 11/09/19 18:00 Eyes: Yes: WNL, Conjunctiva Clear, EOM Intact HENT: Yes: WNL, Atraumatic, Normocephalic Neck: Yes: WNL, Supple, Trachea Midline Cardiovascular: Yes: WNL, Regular Rate and Rhythm Respiratory: Yes: WNL, Regular, CTA Bilaterally Gastrointestinal: Yes: WNL, Normal Bowel Sounds Genitourinary: Yes: WNL Musculoskeletal: Yes: WNL Extremities: Yes: WNL Edema: No Integumentary: Yes: WNL Neurological: Yes: WNL, Alert, Oriented ...Motor Strength: WNL Psychiatric: Yes: WNL Labs: CBC, BMP 11/09/19 05:20 11/09/19 05:20 INR, PTT INR 2.43 (0.83-1.09) H 11/10/19 05:40 Problem List - Problems (1) COVID-19 Code(s): U07.1 - COVID POSITIVE (2) Chest pain Code(s): R07.9 - CHEST PAIN, UNSPECIFIED (3) Nausea Code(s): R11.0 - NAUSEA (4) Cough Code(s): R05 - COUGH (5) Malaise Code(s): R53.81 - OTHER MALAISE (6) URI (upper respiratory infection) Code(s): J06.9 - ACUTE UPPER RESPIRATORY INFECTION, UNSPECIFIED Qualifiers: URI type: unspecified URI Qualified Code(s): J06.9 - Acute upper respiratory infection, unspecified Assessment/Plan Atypical CP Abn CT chest COVID neg h/o PE HTN ECHO nl EF BNP nl Plan; Lipids Cont ABX cont AC rx as per pulmonary MIBI stress test pending
[2019-11-10] MEDS: AZITHROMYCIN IVPB 500 MG/250 ML BAG IVPB SCH (12:23)
[2019-11-10] MEDS: CARVEDILOL 3.125 MG TABLET (FP) PO SCH ×2 (12:23→22:28)
--- NOTE | 2019-11-10 14:16 | PN ---
Progress Note, Physician History of Present Illness: no complaints - Current Medication List Current Medications: Active Medications Albuterol Sulfate (Ventolin Hfa Inhaler -) 2 puff IH Q4H PRN PRN Reason: SHORT OF BREATH/WHEEZING Alprazolam (Xanax -) 0.5 mg PO BID [facility] Last Admin: 11/10/19 10:36 Dose: 0.5 mg Documented by: Aspirin (Ecotrin -) 81 mg PO DAILY [facility] Last Admin: 11/10/19 10:36 Dose: 81 mg Documented by: Carvedilol (Coreg -) 3.125 mg PO BID [facility] Last Admin: 11/10/19 12:23 Dose: 3.125 mg Documented by: Azithromycin (Zithromax 500mg Ivpb (Pre-Docked)) 500 mg in 250 mls @ 250 mls/hr IVPB DAILY [facility] Stop: 11/11/19 10:59 Last Admin: 11/10/19 12:23 Dose: 250 mls/hr Documented by: Non-Formulary Medication (Carisoprodol) 350 mg PO BID [facility] Last Admin: 11/10/19 10:36 Dose: 350 mg Documented by: Non-Formulary Medication (Imatinib Mesylate) 400 mg PO DAILY [facility] Pantoprazole Sodium (Protonix -) 40 mg PO DAILY [facility] Last Admin: 11/10/19 10:36 Dose: 40 mg Documented by: Warfarin Sodium (Coumadin -) 5 mg PO DAILY@1800 [facility] Last Admin: 11/09/19 17:28 Dose: 5 mg Documented by: - Objective Vital Signs: Vital Signs Temperature 97.8 F 11/10/19 01:23 Pulse Rate 53 L 11/10/19 06:00 Respiratory Rate 18 11/10/19 06:00 Blood Pressure 114/72 11/10/19 06:00 O2 Sat by Pulse Oximetry (%) 98 11/09/19 18:00 Constitutional: Yes: No Distress HENT: Yes: Atraumatic Neck: Yes: Supple Cardiovascular: Yes: Regular Rate and Rhythm Respiratory: Yes: Rhonchi Gastrointestinal: Yes: Normal Bowel Sounds Extremities: Yes: WNL Neurological: Yes: Alert, Oriented Labs: CBC, BMP 11/09/19 05:20 11/09/19 05:20 INR, PTT INR 2.43 (0.83-1.09) H 09/02/20 05:40 Problem List - Problems (1) Chest pain Assessment/Plan: troponin negative stress test done today need cardiac clearance to be dc Code(s): R07.9 - CHEST PAIN, UNSPECIFIED (2) HTN (hypertension) Assessment/Plan: monitor Code(s): I10 - ESSENTIAL (PRIMARY) HYPERTENSION (3) Leukemia Code(s): C95.90 - LEUKEMIA, UNSPECIFIED NOT HAVING ACHIEVED REMISSION (4) Pulmonary embolus Code(s): I26.99 - OTHER PULMONARY EMBOLISM WITHOUT ACUTE COR PULMONALE (5) Bladder cancer Code(s): C67.9 - MALIGNANT NEOPLASM OF BLADDER, UNSPECIFIED (6) CAD (coronary artery disease) Code(s): I25.10 - ATHSCL HEART DISEASE OF [place] CORONARY ARTERY W/O ANG PCTRS (7) HLD (hyperlipidemia) Code(s): E78.5 - HYPERLIPIDEMIA, UNSPECIFIED (8) HTN (hypertension) Code(s): I10 - ESSENTIAL (PRIMARY) HYPERTENSION Assessment/Plan COVERING FOR DR WHITE
--- NOTE | 2019-11-10 16:37 | DS ---
Physical Examination Vital Signs: Vital Signs Temperature 98.0 F 11/10/19 14:00 Pulse Rate 98 H 11/10/19 14:00 Respiratory Rate 18 11/10/19 06:00 Blood Pressure 140/81 11/10/19 14:00 O2 Sat by Pulse Oximetry (%) 98 11/09/19 18:00 Constitutional: Yes: No Distress HENT: Yes: Atraumatic Neck: Yes: Supple Cardiovascular: Yes: Regular Rate and Rhythm Respiratory: Yes: CTA Bilaterally Gastrointestinal: Yes: Normal Bowel Sounds Extremities: Yes: WNL Edema: No Neurological: Yes: Alert, Oriented Labs: CBC, BMP 11/09/19 05:20 11/09/19 05:20 Discharge Summary Problems reviewed: Yes Reason For Visit: ACUTE CORONARY SYNDROME Current Active Problems Abnormal CT scan (Acute) Bladder cancer (Acute) COVID-19 (Acute) Chest pain (Acute) HTN (hypertension) (Acute) Leukemia (Acute) Nausea (Acute) Pulmonary embolus (Acute) - Instructions Diet, Activity, Other Instructions: 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 1 week Referrals: Surendra Mauro MD [Staff Physician] - Lance Florentino MD [Primary Care Provider] - - Home Medications Comprehensive Discharge Medication List: Ambulatory Orders Azithromycin [Zithromax 250mg Tablets -] 250 mg PO UTDICT #6 tab 02/02/18 Benzonatate [Tessalon Perle -] 100 mg PO TID PRN #21 capsule 02/02/18 Ipratropium [place] 2 spray NS BID PRN #1 spray 02/02/18 Ketotifen Fumarate [Zaditor] 2 drop OP BID PRN #1 bottle 02/02/18 Methylprednisolone [Medrol Dose Yasir] 4 mg PO ASDIR #21 tablet 02/02/18 Alfuzosin HCl [Uroxatral] 10 mg PO DAILY 04/25/18 Alprazolam 0.5 mg PO BID 04/25/18 Calcium Carb/Magnesium Hydrox [Antacid Chewable Tablet] 1 each PO PRN PRN 04/25/18 Carisoprodol [Soma] 350 mg PO BID 04/25/18 Carvedilol [Coreg -] 3.125 mg PO BID 04/25/18 Clindamycin [Cleocin -] 300 mg PO TID 04/25/18 Imatinib Mesylate 400 mg PO DAILY 04/25/18 Losartan Potassium [Cozaar -] 25 mg PO DAILY 04/25/18 Tamsulosin HCl [Flomax] 0.4 mg PO DAILY 04/25/18 Warfarin Na [Coumadin -] 5 mg PO DAILY 04/25/18 Carvedilol [Coreg -] 3.125 mg PO BID tablet 04/26/18 Losartan Potassium [Cozaar -] 25 mg PO DAILY tablet 04/26/18 Pantoprazole Sodium [Protonix -] 40 mg PO DAILY tablet.ec 04/26/18 Tamsulosin HCl [Flomax -] 0.4 mg PO DAILY@0830 cap.er.24h 04/26/18 Warfarin Na [Coumadin -] 4 mg PO DAILY@1800 tablet 04/26/18 Acid Gone Tablet Chew 11/06/19 Alprazolam [Xanax] 0.5 mg PO BID PRN 11/06/19 Carisoprodol [Soma -] 350 mg PO BID 11/06/19 Carvedilol [Coreg -] 3.125 mg PO BID 11/06/19 Imatinib Mesylate [Gleevec] 400 mg PO DAILY 11/06/19 Lansoprazole 30 mg PO DAILY 11/06/19 Warfarin Sodium [Coumadin] 5 mg PO DAILY 11/06/19 Losartan Potassium [Cozaar -] 25 mg PO DAILY 11/07/19 DC HOME IF CLEARED BY DAIRY FROZEN MANAGER FU PMD /CARDIO OUT PATIENT D/W DR WHITE WHOM I AM COVERING TODAY
[2019-11-10] MEDS: WARFARIN NA 5 MG TABLET PO SCH (18:11)
--- NOTE | 2019-11-10 22:51 | PN.HO ---
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 Chest CTA was done which was negative for PE, but revealed faint patchy ground glass infiltrates. COVID-19 Ag/Ab nonreactive. We were consulted as patient has history of CML on Imatinib Groundglass opacities on CT . COVID neg. ?? recent infection will discuss with pulmonary needs close outpatient f/u
[2019-11-11 01:29] VITALS: TEMP 98
--- NOTE | 2019-11-11 07:50 | PN ---
Progress Note, Physician - Current Medication List Current Medications: Active Medications Albuterol Sulfate (Ventolin Hfa Inhaler -) 2 puff IH Q4H PRN PRN Reason: SHORT OF BREATH/WHEEZING Alprazolam (Xanax -) 0.5 mg PO BID [facility] Last Admin: 11/10/19 22:28 Dose: 0.5 mg Documented by: Aspirin (Ecotrin -) 81 mg PO DAILY [facility] Last Admin: 11/10/19 10:36 Dose: 81 mg Documented by: Carvedilol (Coreg -) 3.125 mg PO BID [facility] Last Admin: 11/10/19 22:28 Dose: 3.125 mg Documented by: Azithromycin (Zithromax 500mg Ivpb (Pre-Docked)) 500 mg in 250 mls @ 250 mls/hr IVPB DAILY [facility] Stop: 11/11/19 10:59 Last Admin: 11/10/19 12:23 Dose: 250 mls/hr Documented by: Non-Formulary Medication (Carisoprodol) 350 mg PO BID [facility] Last Admin: 11/10/19 22:33 Dose: 350 mg Documented by: Non-Formulary Medication (Imatinib Mesylate) 400 mg PO DAILY [facility] Pantoprazole Sodium (Protonix -) 40 mg PO DAILY [facility] Last Admin: 11/10/19 10:36 Dose: 40 mg Documented by: Warfarin Sodium (Coumadin -) 5 mg PO DAILY@1800 [facility] Last Admin: 11/10/19 18:11 Dose: 5 mg Documented by: - Objective Vital Signs: Vital Signs Temperature 98 F 11/11/19 01:29 Pulse Rate 60 11/11/19 06:00 Respiratory Rate 20 11/11/19 06:00 Blood Pressure 99/62 11/11/19 06:00 O2 Sat by Pulse Oximetry (%) 94 L 11/10/19 21:00 Labs: CBC, BMP 11/09/19 05:20 11/09/19 05:20 INR, PTT INR 2.43 (0.83-1.09) H 11/10/19 05:40 Assessment/Plan Assessment/Plan Atypical Chest Pain improved COVID19 NEG PCR Pneumonia Leukemia h/o Bladder Ca HTN - zithromax - O2 to keep SPo2 >90% - anticoagulation - repeat COVID [place] negative - S/P stress test - f/u chest ct outpatient DR ADAME
[2019-11-11] MEDS: AZITHROMYCIN IVPB 500 MG/250 ML BAG IVPB SCH (10:03)
[2019-11-11] MEDS: PANTOPRAZOLE 40 MG TABLET PO SCH (10:04)
[2019-11-11] MEDS: ALPRAZolam 0.25 MG TABLET PO SCH (10:04)
[2019-11-11] MEDS: CARISOPRODOL 350 MG PO SCH (10:04)
[2019-11-11] MEDS: CARVEDILOL 3.125 MG TABLET (FP) PO SCH (10:04)
[2019-11-11] MEDS: ASPIRIN COATED 81 MG TABLET.EC PO SCH (10:04)
[2019-11-11 11:56] VITALS: BP 110/70; PULSE 62
--- NOTE | 2019-11-11 13:49 | PN ---
Progress Note, Physician History of Present Illness: 64yo male with h/o HTN, bladder cancer, leukemia, h/o PE who was admitted with chest pain x 5 days. Denies shortness of breath, cough or wheezing. No fevers, chills or sweats. no recent travel or sick contacts. He smokes 2 cigarettes/day. Lives with and children who are all well. CTA chest done in the ED which was negative for PE but did show faint peripheral ground glass opacities. - Objective Vital Signs: Vital Signs Temperature 98 F 11/11/19 01:29 Pulse Rate 62 11/11/19 09:00 Respiratory Rate 20 11/11/19 09:00 Blood Pressure 110/70 11/11/19 09:00 O2 Sat by Pulse Oximetry (%) 95 11/11/19 09:00 Eyes: Yes: WNL, Conjunctiva Clear, EOM Intact HENT: Yes: WNL, Atraumatic, Normocephalic Neck: Yes: WNL, Supple, Trachea Midline Cardiovascular: Yes: WNL, Regular Rate and Rhythm Respiratory: Yes: WNL, Regular, CTA Bilaterally Gastrointestinal: Yes: WNL, Normal Bowel Sounds Genitourinary: Yes: WNL Musculoskeletal: Yes: WNL Extremities: Yes: WNL Edema: No Integumentary: Yes: WNL Neurological: Yes: WNL, Alert, Oriented ...Motor Strength: WNL Psychiatric: Yes: WNL Labs: CBC, BMP 11/09/19 05:20 11/09/19 05:20 INR, PTT INR 2.43 (0.83-1.09) H 11/10/19 05:40 Problem List - Problems (1) URI (upper respiratory infection) Code(s): J06.9 - ACUTE UPPER RESPIRATORY INFECTION, UNSPECIFIED Qualifiers: URI type: unspecified URI Qualified Code(s): J06.9 - Acute upper respiratory infection, unspecified (2) Cough Code(s): R05 - COUGH (3) Malaise Code(s): R53.81 - OTHER MALAISE (4) Chest pain Code(s): R07.9 - CHEST PAIN, UNSPECIFIED (5) COVID-19 Code(s): U07.1 - COVID POSITIVE (6) Nausea Code(s): R11.0 - NAUSEA Assessment/Plan Atypical CP Abn CT chest COVID neg h/o PE HTN ECHO nl EF BNP nl Plan; Lipids Cont ABX cont AC rx as per pulmonary MIBI stress test negative
== END 2019-11-11 11:04 | disposition home or self-care (01) | DRG 194 ==
LOC: JER 18:38 → JERBED 11-07 01:03 → MERGE 11-07 08:27 → OBSVTOIN 11-07 08:27 → J4W 11-07 23:25
PROVIDERS: ADMIT Internal Medicine; ATTEND Internal Medicine
DX: J18.9 Pneumonia, unspecified organism (principal); C92.10 Chronic myeloid leukemia, BCR/ABL-positive, not having achieved remission; R07.89 Other chest pain; Z79.01 Long term (current) use of anticoagulants; J06.9 Acute upper respiratory infection, unspecified; R93.89 Abnormal findings on diagnostic imaging of other specified body structures; Z86.711 Personal history of pulmonary embolism; I10 Essential (primary) hypertension; F17.210 Nicotine dependence, cigarettes, uncomplicated; Z85.51 Personal history of malignant neoplasm of bladder
CPT/HCPCS: 36415; 71045-TC-FY; 71275-TC; 78452-TC; 80053; 80061; 82550; 82728; 83615; 83721; 83880; 84484; 85025; 85379; 85610; 85730; 86140; 86769; 93005; 93010; 93017; 93306-TC; 99285-25; A9502; G0378; J0131; Q9967; U0003

== ENCOUNTER 2020-06-24 01:47 | Emergency (ER) | payer OTHER ==
[2020-06-24 01:56] VITALS: BP 130/64; PULSE 76; TEMP 99; BMI 32.1
[2020-06-24 02:42] LABS: BASO % 0.3 % (0-2.0); EOS % 1.2 % (0-4.5); HEMATOCRIT 38.1 % (35.4-49); HEMOGLOBIN 13.1 GM/dL (11.7-16.9); LYMPH % 15.2 % (8-40); MCHC 34.5 g/dl (32.0-35.9); MEAN CELL VOLUME 92.8 fl (80-96); MEAN PLT VOLUME 8.7 fl (7.5-11.1); MONO % 10.3 % (3.8-10.2); PLATELET COUNT 247 K/MM3 (134-434); RBC 4.11 M/mm3 (4.00-5.60); RDW 14.8 % (11.9-15.9); WHITE BLOOD COUNT 7.2 K/mm3 (4.0-10.0)
[2020-06-24] MEDS ORDERED: ACETAMINOPHEN 325 MG TABLET (FP) PO ONE (02:42)
[2020-06-24] MEDS ORDERED: ACETAMINOPHEN 325 MG TABLET (FP) ONE (02:46)
[2020-06-24 03:00] LABS: CHLORIDE 105 mmol/L (98-107); SODIUM 141 mmol/L (136-145)
[2020-06-24 03:02] LABS: CALCIUM 8.1 mg/dL (8.5-10.1)
[2020-06-24 03:03] LABS: ALBUMIN 3.1 g/dl (3.4-5.0); ANION GAP 6 MMOL/L (8-16); BLOOD UREA NITROGEN 11.4 mg/dL (7-18); CO2 30 mmol/L (21-32); GLUCOSE,RANDOM 95 mg/dL (74-106)
[2020-06-24 03:06] LABS: CREATININE 1.1 mg/dL (0.55-1.3); SGOT/AST 43 U/L (15-37); SGPT/ALT 45 U/L (13-61)
[2020-06-24 03:07] LABS: BILIRUBIN,TOTAL 0.5 mg/dL (0.2-1)
[2020-06-24 03:08] LABS: TOT PROT 6.5 g/dl (6.4-8.2)
[2020-06-24 03:09] LABS: ALK PHOS 116 U/L (45-117)
[2020-06-24 03:11] LABS: N-TERMINAL BNP 437.7 pg/ml (5-125)
[2020-06-24 04:19] LABS: PROTHROMBIN TIME (PATIENT) 47.9 SEC (9.7-13.0)
[2020-06-24 04:21] LABS: ACTIVATED PTT 41.5 SECONDS (25.2-36.5)
[2020-06-24 04:31] LABS: INR 4.06 (0.83-1.09)
[2020-06-24] MEDS ORDERED: KETOROLAC TROMETHAMINE 30 MG/1 ML VIAL IVPUSH ONE (06:21)
[2020-06-24] MEDS ORDERED: KETOROLAC TROMETHAMINE 60 MG/2 ML VIAL ONE (06:22)
== END 2020-06-24 06:40 | disposition home or self-care (01) ==
LOC: JER 01:47
PROC: 3E0333Z Introduction of Anti-inflammatory into Peripheral Vein, Percutaneous Approach (ICD-10-PCS; principal; 2020-06-24)
DX: R79.1 Abnormal coagulation profile (principal); R11.0 Nausea; R07.9 Chest pain, unspecified; M54.5 Low back pain; Z86.711 Personal history of pulmonary embolism
CPT/HCPCS: 36415; 71046-TC-FY; 71275-TC; 80053; 83735; 83880; 84484; 85025; 85379; 85610; 85730; 93005; 93010; 99285-25

== ENCOUNTER 2020-08-29 09:50 | Emergency (ER) | payer OTHER ==
[2020-08-29 10:00] VITALS: PULSE 78; TEMP 98; BMI 32.1
[2020-08-29] MEDS ORDERED: ONDANSETRON 4 MG/2 ML VIAL IVPB ONE (11:59)
[2020-08-29] MEDS ORDERED: FAMOTIDINE 20 MG/50 ML IVPB 20 MG in PREMIX 50 IVPB ONE (11:59)
[2020-08-29] MEDS ORDERED: ONDANSETRON 4 MG/2 ML VIAL ONE (12:19)
[2020-08-29] MEDS ORDERED: FAMOTIDINE 20 MG/50 ML IVPB 20 MG/50 ML MG IVPB ONE (12:19)
[2020-08-29 12:53] LABS: BASO % 0.9 % (0-2.0); EOS % 1.2 % (0-4.5); HEMATOCRIT 40.5 % (35.4-49); HEMOGLOBIN 13.7 GM/dL (11.7-16.9); LYMPH % 28.2 % (8-40); MCH 30.3 pg (25.7-33.7); MCHC 33.9 g/dl (32.0-35.9); MEAN CELL VOLUME 89.4 fl (80-96); MEAN PLT VOLUME 7.9 fl (7.5-11.1); MONO % 10.9 % (3.8-10.2); NEUT % 58.8 % (42.8-82.8); PLATELET COUNT 199 10^3/uL (134-434); RBC 4.53 M/mm3 (4.00-5.60); RDW 16.8 % (11.9-15.9); WHITE BLOOD COUNT 5.2 K/mm3 (4.0-10.0)
[2020-08-29 13:09] LABS: INR 2.53 (0.83-1.09); PROTHROMBIN TIME (PATIENT) 29.8 SEC (9.7-13.0)
[2020-08-29 13:14] LABS: CHLORIDE 108 mmol/L (98-107); SODIUM 140 mmol/L (136-145)
[2020-08-29 13:16] LABS: CALCIUM 8.2 mg/dL (8.5-10.1)
[2020-08-29 13:17] LABS: ALBUMIN 3.8 g/dl (3.4-5.0); ANION GAP 6 MMOL/L (8-16); BLOOD UREA NITROGEN 9.2 mg/dL (7-18); CO2 26 mmol/L (21-32); GLUCOSE,RANDOM 78 mg/dL (74-106); LIPASE 234 U/L (73-393)
[2020-08-29 13:19] LABS: SGPT/ALT 21 U/L (13-61)
[2020-08-29 13:20] LABS: SGOT/AST 31 U/L (15-37)
[2020-08-29 13:21] LABS: BILIRUBIN,TOTAL 0.3 mg/dL (0.2-1); CREATININE 1.2 mg/dL (0.55-1.3)
[2020-08-29 13:22] LABS: ALK PHOS 108 U/L (45-117)
[2020-08-29 14:35] VITALS: BP 120/80
== END 2020-08-29 14:36 | disposition home or self-care (01) ==
LOC: JER 09:50
PROC: 3E033GC Introduction of Other Therapeutic Substance into Peripheral Vein, Percutaneous Approach (ICD-10-PCS; principal; 2020-08-29)
PROC: 3E033GC Introduction of Other Therapeutic Substance into Peripheral Vein, Percutaneous Approach (ICD-10-PCS; 2020-08-29)
DX: R19.7 Diarrhea, unspecified (principal)
CPT/HCPCS: 36415; 80053; 82550; 83690; 84484; 85025; 85610; 93005; 93010; 99284-25

== ENCOUNTER 2023-11-17 13:51 | Emergency (ER) | payer OTHER ==
[2023-11-17 14:05] VITALS: RESP 17; TEMP 97.3; BMI 32.1
[2023-11-17] MEDS ORDERED: ACETAMINOPHEN 325 MG TABLET (FP) ONE (15:53)
[2023-11-17] MEDS: ACETAMINOPHEN 500 MG TABLET (FP) PO ONE (15:56)
[2023-11-17 16:29] LABS: BASO % 0.4 % (0-2.0); EOS % 3.6 % (0-4.5); HEMATOCRIT 42.5 % (35.4-49); HEMOGLOBIN 14.7 GM/dL (11.7-16.9); LYMPH % 32.2 % (8-40); MCHC 34.5 g/dl (32.0-35.9); MEAN CELL VOLUME 92.7 fl (80-96); MONO % 10.2 % (3.8-10.2); NEUT % 53.6 % (42.8-82.8); PLATELET COUNT 186 10^3/uL (134-434); RBC 4.58 M/mm3 (4.00-5.60); RDW 14.5 % (11.9-15.9)
[2023-11-17 16:33] LABS: INR 2.19 (0.83-1.09); PROTHROMBIN TIME (PATIENT) 24.2 SEC (9.7-13.0)
[2023-11-17 17:16] LABS: POTASSIUM 4.5 mmol/L (3.5-5.1)
[2023-11-17 17:17] VITALS: BP 116/63; PULSE 69
[2023-11-17 17:18] LABS: CALCIUM 8.7 mg/dL (8.5-10.1)
[2023-11-17 17:19] LABS: ALBUMIN 3.9 g/dl (3.4-5.0); BLOOD UREA NITROGEN 10.3 mg/dL (7-18)
[2023-11-17 17:22] LABS: CREATININE 1.3 mg/dL (0.55-1.3)
[2023-11-17 17:23] LABS: BILIRUBIN,TOTAL 0.5 mg/dL (0.2-1)
[2023-11-17 17:27] LABS: N-TERMINAL BNP 139.4 pg/ml (5-125)
[2023-11-17] MEDS ORDERED: LIDOCAINE 4% PATCH TP ONE (17:50)
[2023-11-17 17:51] LABS: HIV INTERPRETATION NEGATIVE (NEGATIVE)
[2023-11-17] MEDS: LIDOCAINE 5% TOPICAL PATCH TP ONE (18:05)
[2023-11-17] MEDS ORDERED: LIDOCAINE PATCH REMOVAL MC SCH (22:00)
== END 2023-11-17 18:06 | disposition home or self-care (01) ==
LOC: JER 13:51
DX: R07.9 Chest pain, unspecified (principal); M79.604 Pain in right leg; Z20.822 Contact with and (suspected) exposure to COVID-19
CPT/HCPCS: 0241U-QW; 36415; 71045-TC-FY; 80053; 83880; 84484; 85025; 85610; 86803; 87389; 93005; 93010; 93970-TC; 99285-25

== ENCOUNTER 2024-05-17 11:01 | Emergency (ER) | payer OTHER ==
[2024-05-17 11:33] VITALS: BMI 28.0
[2024-05-17] MEDS ORDERED: ACETAMINOPHEN 500 MG TABLET (FP) ONE (11:54)
[2024-05-17] MEDS: ACETAMINOPHEN 500 MG TABLET (FP) PO ONE (11:56)
[2024-05-17 17:03] VITALS: BP 113/70; PULSE 69; RESP 17; TEMP 98.3
== END 2024-05-17 17:16 | disposition home or self-care (01) ==
LOC: JER 11:01
DX: M62.830 Muscle spasm of back (principal); M25.511 Pain in right shoulder; M25.531 Pain in right wrist; M54.50 Low back pain, unspecified; M25.551 Pain in right hip; M25.552 Pain in left hip; W01.0XXA Fall on same level from slipping, tripping and stumbling without subsequent striking against object, initial encounter
CPT/HCPCS: 70450-TC; 72131-TC; 72170-TC-FY; 73030-TC-RT-FY; 73110-TC-RT-FY; 82962; 99285-25